=== PATIENT | male | born 1975 | race Caucasian/White ===

== ENCOUNTER → 2020-09-11 15:23 | Outpatient (BNVA) | payer OTHER, SELFPAY | PROVIDERS: PCP Physician Assistant; Visit Provider Surgery | DX: D17.1 Benign lipomatous neoplasm of skin and subcutaneous tissue of trunk (principal) | CPT/HCPCS: 99202 ==

== ENCOUNTER 2020-09-20 14:10 | Outpatient (REF) | payer OTHER, SELFPAY ==
[2020-09-20 14:18] VITALS: BP 160/79; PULSE 77; RESP 16; TEMP 36.7; O2SAT 99
[2020-09-20 14:19] VITALS: BMI 68.5
[2020-09-20 14:45] VITALS: BP 134/79; PULSE 77; RESP 16; O2SAT 98
--- NOTE | 2020-09-20 16:34 | OP_ITS ---
SURGEON: Imer Esquivel MD INDICATIONS: The patient is a 45-year-old male, who was seen in the office because of a mass on the back that was suggestive of lipoma. He wanted this excised and had understood the technique of excision under local anesthesia. He was aware of the risks, benefits, and alternatives. PREOPERATIVE DIAGNOSIS: Lipoma from the back. POSTOPERATIVE DIAGNOSIS: Lipoma from the back. PROCEDURE PERFORMED: Excision of lipoma from the back. ESTIMATED BLOOD LOSS: COMPLICATIONS: ANESTHESIA: ASSISTANTS: SPECIMENS: DESCRIPTION OF PROCEDURE: He was brought to the minor procedure room. He was placed in prone position. The area of the lipoma in the midback was prepped and draped. Lidocaine 1% was used for local anesthesia. An incision was made on the skin overlying this lipoma using blade #15, it was carried down to full-thickness skin and thick subcutaneous fat. We continued to do sharp dissection with scissors until we were able to visualize the lipoma. We sharply dissected lipoma off the rest of the subcutaneous layer using scissors until we were able to completely deliver this and sent as specimen. The lipoma was about 2.5 cm in widest diameter. I irrigated the area of excision. I closed the incision with full-thickness nylon 3-0 interrupted sutures. Thick dressings were applied. The patient tolerated the procedure well. There were no complications noted. He will be seen in the office for removal of sutures in about 2 to 3 weeks. MD MESHA Zaman/MODL / [id number]
== END 2020-09-20 14:11 | disposition home or self-care (01) ==
LOC: HO.MS 14:10
PROVIDERS: PCP Physician Assistant; Visit Provider Surgery
PROC: (CPT 21930; principal; 2020-09-20 14:30)
DX: D17.1 Benign lipomatous neoplasm of skin and subcutaneous tissue of trunk (principal); G47.33 Obstructive sleep apnea (adult) (pediatric); Z79.899 Other long term (current) drug therapy
CPT/HCPCS: 21930; 88304

== ENCOUNTER → 2020-10-04 10:41 | Outpatient (BNVA) | payer OTHER, SELFPAY | PROVIDERS: PCP Physician Assistant; Visit Provider Surgery | DX: D17.1 Benign lipomatous neoplasm of skin and subcutaneous tissue of trunk (principal) | CPT/HCPCS: 99212 ==

== ENCOUNTER → 2023-03-24 15:29 | Outpatient (REF) | payer OTHER, SELFPAY | LOC: HO.SL 15:29 | PROVIDERS: PCP Physician Assistant; Visit Provider Nurse Practitioner Family | DX: G47.33 Obstructive sleep apnea (adult) (pediatric) (principal) | CPT/HCPCS: 95806 ==

== ENCOUNTER → 2023-03-24 15:44 | Outpatient (BNV) | payer OTHER, SELFPAY | PROVIDERS: PCP Physician Assistant; Visit Provider Internal Medicine | DX: G47.33 Obstructive sleep apnea (adult) (pediatric) (principal) | CPT/HCPCS: 95806 ==

== ENCOUNTER 2023-04-25 10:25 | Outpatient (AMB) | payer OTHER, SELFPAY ==
[2023-04-25 10:29] VITALS: BP 136/80; PULSE 96; O2SAT 98; BMI 31.7
--- NOTE | 2023-04-25 10:29 | A.OFFVIS_ITS ---
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 He was referred after PCP sent for home sleep study and found to have an AHI of 46.1. He reports prior use of CPAP therapy over ten years ago and has not used any since. He reports loud snoring, witnessed apneas and frequent night awakenings along with day time fatigue/fogginess. He is looking forward to starting therapy. He denies any personal history of respiratory conditions or symptoms. [facility] Medical History No significant past medical history DELMA (obstructive sleep apnea) Surgical History No history of previous surgery Family History Mother Heart palpitations Father Heart palpitations Social History (Updated 04/25/23 @ 10:33 by Arely Mckinley LPN) Housing: House Alcohol intake: former Year quit: 2012 Patient Tobacco Use Status: Former Tobacco user Tobacco use type: Cigarette Cigarette Packs Per Day: 1 e-Cigarette/Vaping Use: Currently Using Second Hand Smoke Exposure: Yes service: No Current occupational status: unemployed Cognitive needs: No Hearing needs: No Vision needs: No Review of Systems Const Denies chills, Denies excessive sweating, Denies fever(s) and Denies night sweats Eyes Denies dry eyes, Denies irritation and Denies itchy eyes ENT Reports Normal hearing present, Denies nasal congestion, Denies nasal discharge, Denies post nasal drip and Denies sore throat Card Denies chest pain, Denies chest pain at rest, Denies chest pain with activity, Denies claudication, Denies leg edema, Denies dyspnea, Denies dyspnea on exertion and Denies orthopnea Resp Denies chest congestion, Denies cough, Denies excessive phlegm production, Denies pain on inspiration, Denies pain with cough, Denies dyspnea, Denies dyspnea on exertion, Denies stridor and Denies wheezing Musc Denies myalgias Neuro Reports Normal hearing present Endo Denies excessive sweating Curtis/Lymph Denies lymphadenopathy Aller/Immun Denies itchy eyes, Denies seasonal rhinorrhea and Denies wheezing Physical Exam Vital Signs: Last Vital Signs Pulse 96 04/25/23 10:29 BP 136/80 04/25/23 10:29 Pulse Ox 98 04/25/23 10:29 Oxygen Delivery Method Room Air 04/25/23 10:29 BMI result Body Mass Index 31.7 Const General: cooperative, healthy appearing, comfortable, no acute distress, well developed and alert Orientation/consciousness: patient oriented x3 Limitations: no limitations HEENT Head: Yes normal to inspection, Yes normocephalic and Yes atraumatic Ears: hearing grossly normal bilaterally and external ears normal Eyes General: appearance normal, both eyes and all related structures Eyelids: Yes eyelids normal Sclerae: sclerae normal EOM: EOMs intact bilaterally Neck Neck: Yes normal visual inspection and Yes no lymphadenopathy Lymphatic: no lymphadenopathy noted Chest Chest palpation & inspection: normal inspection of the chest Resp Effort & Inspection: normal respiratory effort, able to speak in complete sentences, no audible wheezes, no cough, no stridor, not tachypneic, no tripod positioning and no use of accessory muscles Auscultation: clear to auscultation bilaterally Cardio Jugular venous distension: no JVD Rate: regular rate Rhythm: regular rhythm Skin Other: warm, dry General skin exam: no rashes or lesions noted Neuro General: patient oriented x3 Cranial nerves: Yes Normal hearing present Cognition (Neuro): normal cognition Gait exam (Neuro): Normal gait present Extrem General: Yes normal to inspection, Yes capillary refill normal, Yes no clubbing, cyanosis or edema and Yes no pedal edema Psych Appearance: grossly normal and well kempt Speech and movement: Normal speech and movement present and Clear speech present Affect: normal affect Attitude: cooperative Thought process: Normal thought process present Thought content: Normal thought content present Insight: Good insight present (Psych) Judgement: Good judgement present (Psych) Results Reviewed Results Reviewed: Assessment & Plan Assessment & Plan (1) DELMA (obstructive sleep apnea): Code(s): G47.33 - Obstructive sleep apnea (adult) (pediatric) Plan Reviewed polysomnography report with patient which revealed severe obstructive sleep apnea with AHI of 46.1. Will send for CPAP therapy and full face mask with settings of 6-20 cm.He is aware if he has any issues with the machine/mask to call the office. Will follow up after patient has used machine for 4 weeks. All questions were answered and patient is in agreement of plan. Coding Level of Care Code New Pt Level 3 (74152) Diagnoses DELMA (obstructive sleep apnea) G47.33
== END 2023-04-25 10:56 | disposition home or self-care (01) ==
PROVIDERS: PCP Physician Assistant; Referring Provider Nurse Practitioner Family; Visit Provider Nurse Practitioner Family
DX: G47.33 Obstructive sleep apnea (adult) (pediatric) (principal)
CPT/HCPCS: 99203

== ENCOUNTER → 2023-04-25 10:25 | Outpatient (BNVA) | payer OTHER, SELFPAY | PROVIDERS: PCP Physician Assistant; Visit Provider Nurse Practitioner Family | DX: G47.33 Obstructive sleep apnea (adult) (pediatric) (principal) | CPT/HCPCS: 99202 ==

== ENCOUNTER 2023-07-24 07:08 | Outpatient (AMB) | payer OTHER, SELFPAY ==
[2023-07-24 07:15] VITALS: BP 130/82; PULSE 62; O2SAT 95; BMI 31.9
--- NOTE | 2023-07-24 07:15 | A.OFFPC_ITS ---
Vital Signs 07/24/23 07:15 Height 5 ft 11 in Weight 229 lb BMI 31.9 BP 130/82 Blood Pressure Location Lt brachial Position Sitting Pulse 62 Pulse Source Pulse Oximeter Pulse Oximetry (%) 95 Oxygen Delivery Method Room Air Intake Visit Reasons: Palpitations Allergies No Known Allergies Allergy (Verified 07/24/23 07:16) Tobacco use date assessed: 02/14/23 Dental Screening Dental Screen Date: 07/24/23 Did you have a dental visit in the last 12 months?: Yes Did you have a dental problem in the last 6 months where you did not have access to dental care?: No Was dental information given to patient?: Patient has dentist HPI HPI Comments History of Present Illness Details 48 year old male past medical history si gnificant for obstructive sleep apnea, smoker and opiate dependence. Patient currently following with [facility]. Review of the notes patient has been seen by pulmonology and CPAP was ordered. Patient reports using CPAP for 3 hours a night with good effect. Patient educated to use CPAP machine for greater than 4 hours per night. Patient agreeable. Patient reports few episodes palpitation or he states he gets quick heard couple beats in a row that makes him nervous. Patient reports only last a second or two. Patient denies any associated chest pain, diaphoresis syncope. Patient states he has made an effort take decrease his caffeine consumption stay adequately hydrated. Patient states palpitations has not occurred in 1 week. EKG in office: Sinus rhythm, heart rate 58 with slight intraventricular conduction delay, EKG without significant abnormalities. Patient reminded to get previously ordered blood work obtained. [facility] Medical History No significant past medical history DELMA (obstructive sleep apnea) Surgical History No history of previous surgery Family History Mother Heart palpitations Father Heart palpitations Social History (Updated 04/25/23 @ 10:33 by Arely Mckinley LPN) Housing: House Alcohol intake: former Year quit: 2012 Patient Tobacco Use Status: Former Tobacco user Tobacco use type: Cigarette Cigarette Packs Per Day: 1 e-Cigarette/Vaping Use: Currently Using Second Hand Smoke Exposure: Yes service: No Current occupational status: unemployed Cognitive needs: No Hearing needs: No Vision needs: No Questionnaire PHQ-9 Over the last 2 weeks, how often have you been bothered by any of the following problems? 1. Little interest or pleasure in doing things: not at all 2. Feeling down, depressed, or hopeless: not at all 3. Trouble falling or staying asleep, or sleeping too much: not at all 4. Feeling tired or having little energy: not at all 5. Poor appetite or overeating: not at all 6. Feeling bad about yourself - or that you are a failure or have let yourself or your family down: not at all 7. Trouble concentrating on things, such as reading the newspaper or watching television: not at all 8. Moving or speaking so slowly that other people could have noticed. Or the opposite - being so fidgety or restless that you have been moving around a lot more than usual: not at all 9. Thoughts that you would be better off or of hurting yourself in some way: not at all Total score: 0 Depression Screening Interpretation: Negative Depression Screening Done: Yes 40305 - PHQ-9 Billing: Yes Source: Developed by Drs. Tavon Rinaldi, Klaudia Casey, Dg Beatty and colleagues, with an educational coral from [employer]. Thrive Questionnaire Date Thrive assessed: 02/14/23 AUDIT C Alcohol Use Questionnaire (AUDIT-C) 1. How often do you have a drink containing alcohol?: Never Total Score: 0 DIOGO-7 AMB Questionnaire DIOGO-7 Date DIOGO - 7 assessed: 02/14/23 Source: Developed by Drs. Tavon Rinaldi, Dg Bridges and colleagues, with an educational coral from [employer]. Review of Systems Const Denies chills, Denies fatigue, Denies fever(s) and Denies poor appetite Eyes Denies no additional complaints ENT Reports Normal hearing present Card Denies chest pain, Denies syncope, Reports rapid heart rate and Denies dyspnea Resp Denies cough and Denies dyspnea GI Denies change in stool character, Denies constipation, Denies diarrhea, Denies nausea and Denies vomiting Denies dysuria, Denies urinary frequency and Denies urinary urgency Neuro Reports Normal hearing present, Denies confusion and Denies syncope Psych Denies confusion Endo Denies fatigue Physical exam (Primary Care) Vital Signs: Last Vital Signs Pulse 62 07/24/23 07:15 BP 130/82 07/24/23 07:15 Pulse Ox 95 07/24/23 07:15 Oxygen Delivery Method Room Air 07/24/23 07:15 BMI result Body Mass Index 31.9 Tobacco/Smoking Status: Tobacco use Status Tobacco use date assessed 02/14/23 07/24/23 07:17 Patient Tobacco Use Status Former Tobacco user 07/24/23 07:17 Tobacco use type Cigarette 07/24/23 07:17 e-Cigarette/Vaping Use Currently Using 07/24/23 07:17 PHQ-9: PHQ-9 Score PHQ-9: Total score 0 07/24/23 07:38 Depression Screening Interpretation: Negative Thrive Assessment: Date of Thrive Assessment Date Thrive assessed 02/14/23 07/24/23 07:17 Const General: No confusion Orientation/consciousness: No confusion HENMT Head: Yes normocephalic and Yes atraumatic Eyes Conjunctivae: conjunctivae normal Chest Chest palpation & inspection: normal inspection of the chest Resp Effort & Inspection: normal respiratory effort Auscultation: clear to auscultation bilaterally, no crackles, no rhonchi and no wheezes Cardio Rate: regular rate Rhythm: regular rhythm Heart sounds: S1 normal heart sound present and S2 normal heart sound present GI Inspection: Yes normal to inspection Neuro General: No confusion Cranial nerves: Yes Normal hearing present Extrem General: No edema Assessment and Plan Assessment & Plan (1) Palpitations: Code(s): R00.2 - Palpitations Plan: EKG in office sinus rhythm. 3 day Holter monitor ordered to further evaluate. Patient advised to get previously ordered fasting blood work completed. Patient advised to continue take decrease caffeine consumption and ensured to drink plenty water. Signs symptoms reviewed with patient when to seek emergency medical attention. (2) DELMA (obstructive sleep apnea): Code(s): G47.33 - Obstructive sleep apnea (adult) (pediatric) Plan: Patient advised to use CPAP for greater than 4 hours a night with good. Patient reports currently using CPAP for 3 hours per night and benefits from this. Continue to follow with pulmonology Plan Keep scheduled with PCP Orders: Orders ECG 3 day holter monitor Today R00.2 - Palpitations Coding Level of Care Code Est Pt Level 3 (02361) Diagnoses Palpitations R00.2 DELMA (obstructive sleep apnea) G47.33
== END 2023-07-24 09:55 | disposition home or self-care (01) ==
PROVIDERS: PCP Physician Assistant; Visit Provider Nurse Practitioner Family
DX: R00.2 Palpitations (principal); G47.33 Obstructive sleep apnea (adult) (pediatric); F17.210 Nicotine dependence, cigarettes, uncomplicated
CPT/HCPCS: 99213

== ENCOUNTER → 2023-07-29 08:31 | Outpatient (REF) | payer OTHER, SELFPAY ==
--- NOTE | 2023-07-29 08:34 | HM_ITS ---
Conclusion poor: 1. Patient was monitored for total period of 2 days and 23 hours 2. Baseline was normal sinus with average heart of 85 beats per minute 3. No significant pauses noted 4. Rare PACs noted with 119 beat run of supraventricular run at 157 beats per minute 5. No patient reported events MTDD
== END ==
LOC: HO.CARD 08:31
PROVIDERS: PCP Nurse Practitioner Family; Visit Provider Nurse Practitioner Family
DX: R00.2 Palpitations (principal)
CPT/HCPCS: 93242

== ENCOUNTER → 2023-07-29 08:34 | Outpatient (BNV) | payer OTHER, SELFPAY | PROVIDERS: PCP Nurse Practitioner Family; Visit Provider Internal Medicine Cardiovascular Disease | DX: I49.1 Atrial premature depolarization (principal) | CPT/HCPCS: 93244 ==

== ENCOUNTER 2023-09-16 14:33 | Outpatient (AMB) | payer OTHER, SELFPAY ==
[2023-09-16 14:42] VITALS: BP 142/79; PULSE 80; BMI 32.9
--- NOTE | 2023-09-16 14:42 | A.OFFVIS_ITS ---
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 He is a pleasant 48-year-old male with prior history of alcohol and opiate dependence, currently has remained clean for many many years currently on Suboxone therapy. Has history of obstructive sleep apnea. Over the last 3 months he has been noticing symptoms of palpitations. He describes this symptoms of fluttering in his chest which are quick can happen mostly at rest. He has not noticed any increase recent stress in his life for stressors. Denies any [id number] medication use. Patient had a Holter monitor done which showed 1 episode of 19 beats run of SVT at 169 beats per minute. Interestingly says about 20 years ago when he was undergoing rehab he had 1 episode of very fast heart rate for which she was referred to what he thinks is [facility] and was told that he had rapid heart rate. He was given intravenous what appears to be adenosine but this was not effective and subsequently overnight he converted back to sinus rhythm. Although no further treatment or follow-up was offered to him at this point time. He said he almost forgotten this, however this as recent phase with symptoms of palpitations. He is concerned about these palpitation as his brother has history of atrial fibrillation and his father had undergone probably an ablation although he is not entirely clear. He remains active. Denies any over use of stimulants. Denies any exertional chest pain or shortness of breath. COUNTS INCLUDE 234 BEDS AT THE [facility] Medical History DELMA (obstructive sleep apnea) No significant past medical history Surgical History No history of previous surgery Family History Mother Heart palpitations Father Heart palpitations Social History Housing: House Alcohol intake: former Year quit: 2012 Patient Tobacco Use Status: Former Tobacco user Tobacco use type: Cigarette Cigarette Packs Per Day: 1 e-Cigarette/Vaping Use: Currently Using Second Hand Smoke Exposure: Yes service: No Current occupational status: unemployed Cognitive needs: No Hearing needs: No Vision needs: No Review of Systems Const Denies chills, Denies daytime sleepiness, Denies fatigue, Denies fever(s), Denies frequent falls, Denies poor appetite, Denies snoring, Denies stops breathing during sleep, Denies weakness, Denies weight gain and Denies weight loss Eyes Denies loss of vision ENT Denies dizziness and Denies hearing loss Card Denies chest pain, Denies claudication, Denies leg edema, Denies lightheadedness, Denies palpitations, Denies dyspnea, Denies dyspnea on exertion and Denies orthopnea Resp Denies cough, Denies excessive phlegm production, Denies dyspnea, Denies dyspnea on exertion, Denies snoring and Denies wheezing GI Denies abdominal pain, Denies hematochezia, Denies change in bowel habits, Denies nausea and Denies vomiting Denies dysuria and Denies urinary frequency Musc Denies arthralgias, Denies muscle weakness, Denies numbness and Denies other (frequent falls) Skin/Breast Denies nail changes and Denies rash Neuro Denies Abnormal speech present, Denies dizziness, Denies frequent falls, Denies loss of vision, Denies memory loss, Denies numbness and Denies weakness Psych Denies depression and Denies memory loss Endo Denies fatigue and Denies palpitations Curtis/Lymph Reports easy bruising and Reports other (anemia) Aller/Immun Denies wheezing Physical Exam Vital Signs: Last Vital Signs Pulse 95 09/16/23 14:53 BP 135/85 09/16/23 14:53 BMI result Body Mass Index 32.9 Const General: cooperative, comfortable, no acute distress, alert, awake and anxious Nutritional Appearance: overweight Orientation/consciousness: patient oriented x3 Limitations: no limitations HEENT Head: Yes normocephalic and Yes atraumatic Neck Neck: Yes trachea midline, Yes supple and Yes no JVD Resp Effort & Inspection: normal respiratory effort Auscultation: clear to auscultation bilaterally Cardio Jugular venous distension: no JVD Palpation: normal PMI Rate: regular rate Rhythm: regular rhythm Heart sounds: S1 normal heart sound present, S2 normal heart sound present, no click, no gallops, no murmurs and no rubs GI Auscultation: normal bowel sounds Skin General skin exam: no rashes or lesions noted Neuro General: patient oriented x3 and no focal motor deficits Speech: No Abnormal speech present Extrem General: Yes no clubbing, cyanosis or edema Psych Appearance: grossly normal Assessment & Plan Assessment & Plan (1) SVT (supraventricular tachycardia): Code(s): I47.10 - Supraventricular tachycardia, unspecified Plan: Patient recent symptoms of palpitation which are more like skipped heartbeats most likely related to isolated ectopy such as PACs or PVCs but he has highly symptomatic with it. However is noted to have 1 episode of SVT on the Holter monitor and recalls 1 clinically significant episode of SVT about 20 years ago which had to be treated in the emergency room. 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 We discussed about dual AV [place] physiology and management of SVT. Given his highly symptomatic nature of palpitation was started mom metoprolol to reduce excitability as well as slow the conduction through the fast pathway to reduce recurrence of SVT. We discussed about vagal maneuvers in details. We also discussed about if necessary ablation procedure if required. Avoidance of stimulants such as caffeine and alcohol an [id number] pseudo ephedrine was discussed. Stress mitigation strategies were discussed. Will obtain echocardiogram to evaluate for structural heart issues. Repeat Holter monitor on medications in 4 weeks time. Will follow up in the clinic in 6-8 weeks time. Orders: Orders CA echo transthoracic complete Today I47.10 - Supraventricular tachycardia, unspecified ECG holter monitor 48 hour 4 Weeks I47.10 - Supraventricular tachycardia, unspecified Medications: New metoprolol succinate ER (Toprol XL) 50 mg PO DAILY 30 tabs 3RF Coding Level of Care Code New Pt Level 4 (18272) Diagnoses SVT (supraventricular tachycardia) I47.10
[2023-09-16 14:53] VITALS: BP 135/85; BP 136/89; PULSE 89; PULSE 95
== END 2023-09-16 15:18 | disposition home or self-care (01) ==
PROVIDERS: PCP Nurse Practitioner Family; Visit Provider Internal Medicine Cardiovascular Disease
DX: I47.10 Supraventricular tachycardia, unspecified (principal)
CPT/HCPCS: 99204

== ENCOUNTER → 2023-09-16 14:33 | Outpatient (BNVA) | payer OTHER, SELFPAY | PROVIDERS: PCP Nurse Practitioner Family; Visit Provider Internal Medicine Cardiovascular Disease | DX: I47.10 Supraventricular tachycardia, unspecified (principal) | CPT/HCPCS: 99202 ==

== ENCOUNTER → 2023-10-09 10:06 | Outpatient (REF) | payer OTHER, SELFPAY ==
--- NOTE | 2023-10-09 10:09 | HM_ITS ---
* Total monitoring time 2 days. * Underlying rhythm is sinus with an average rate of 76/Min. Range 48 to 109/Min. * Rare supraventricular and ventricular ectopy. * No sustained arrhythmias. * No significant pauses or AV blocks. * No patient markers or diary events. MTDD
--- NOTE | 2023-10-09 10:09 | CA_ITS ---
Transthoracic Echocardiogram Patient (Last, First, Middle): Dl Watson J Gender: Male Date of : 1975 Age: 48 Procedure Date: 10/09/2023 Procedure Type: Transthoracic Echocardiogram Location: OP Height: 182.88 cm Weight: 104.33 kg BSA: 2.26 m2 Heart Rate: 63 bpm BP: 138 / 84 mmHg Senior Product Development Scientist: MARY Referring MD: Chris Soto MD Roentgenologist: Chris Soto MD Symptoms: I47.10 - Supraventricular tachycardia, unspecified Study Quality: Adequate W contrast ECG Rhythm: Sinus Conclusions: - Essentially normal study Findings Procedure Information Contrast agent, definity, is being given per protocol without apparent complications. Left Ventricle Normal left ventricular size, thickness, and systolic function. The visually estimated ejection fraction is between 60-65%. Spectral Doppler is indicative of a normal filling pattern. Right Ventricle Normal right ventricular cavity size and systolic function. Atria The left atrium is likely dilated. Interatrial shunt cannot be excluded. The right atrium is normal in size. Aortic Valve The aortic valve structure and function is likely normal. There is no aortic valve stenosis. There is no aortic valve regurgitation. Mitral Valve Likely normal mitral valve structure and function. There is trace mitral valve regurgitation. There is no mitral valve stenosis. Pulmonic Valve The pulmonic valve is likely normal. There is trace pulmonic valve regurgitation. Tricuspid Valve Normal tricuspid valve structure. Tricuspid regurgitation envelope is inadequate for calculation of right ventricular systolic pressure. Normal right atrial pressure. Great Vessels All visible segments of the aorta are normal in size. The pulmonary artery was not well visualized. Venous The inferior vena cava is normal in size and collapses greater than 50% with inspiration. Pericardium/Pleural There is no evidence of pericardial effusion. Prior Study Comparison No prior study available for comparison. Measurements 2D Linear Measurements IVSd: 1.07 0.6-0.9/0.6-1.0 cm LVIDd: 5.46 3.9-5.3/4.2-5.9 cm LVIDd Index: 2.42 2.4-3.2/2.2-3.1 cm/m2 LVIDs: 3.51 2.0-3.6 cm LVPWd: 1.06 0.7-1.1 cm LA Diam: 3.90 2.7-3.8/3.0-4.0 cm LAIDs Index: 1.73 1.5-2.3 cm/m2 LV Mass: 307.36 67-162/88-224 g LV Mass Index: 136.00 43-95/49-115 g/m2 LVOT Diam: 2.30 3.0+(-)1.3 cm 2D Systolic Function EF 4C: 58.60 >55% EF 2C: 61.90 >55% EF BiP: 60.70 >55% Mitral Valve MV Pk E: 0.92 MV PK A: 0.74 MV Decel Time: 224.00 E/A: 1.20 E'Lateral: 10.00 E'Medial: 7.07 E/E' Med: 13.00 E/E' Lat: 9.20 PHT: 66.00 MVA PHT: 3.33 Decel Robeson: 4.09 Aortic Valve AoV Pk Percy: 1.47 AoV Mn Percy: 0.89 AoV VTI: 0.31 AoV Pk Grad: 9.00 Aov Mn Grad: 4.00 BA Cont.VTI: 3.05 LVOT LVOT Pk Percy: 1.06 LVOT Mn Percy: 0.70 LVOT VTI: 0.23 LVOT Pk Grad: 4.00 LVOT Mn Grad: 2.00 LVOT Diam: 2.30 LVOT Area: 4.15 Diastolic Function MV Pk E: 0.92 MV Pk A: 0.74 E/A: 1.20 E'Medial: 7.07 E/E' Med: 13.00 E' Laterial: 10.00 E/E' Lat: 9.20 Right Ventricle TAPSE (mm): 26.20 TVS' Percy: 10.70 Tricuspid Valve RA Press: 3.00 Great Vessels Aorta Sinus of Valsalva: 3.69 2.0-3.[address] [place]: 2.50 1.7-3.4 cm Ao Asc: 3.00 2.1-3.4 cm Updated in Other Vendor System with Status of Final Chris Soto MD electronically signed on 10/09/2023 1:31:33 PM with status of Final
== END ==
LOC: HO.CARD 10:06
PROVIDERS: PCP Nurse Practitioner Family; Visit Provider Internal Medicine Cardiovascular Disease
DX: I47.10 Supraventricular tachycardia, unspecified (principal)
CPT/HCPCS: 93225; 93306; Q9957

== ENCOUNTER → 2023-10-09 10:09 | Outpatient (BNV) | payer OTHER, SELFPAY | PROVIDERS: PCP Nurse Practitioner Family; Visit Provider Internal Medicine Cardiovascular Disease | DX: I47.10 Supraventricular tachycardia, unspecified (principal) | CPT/HCPCS: 93227; 93306 ==

== ENCOUNTER 2023-11-06 13:23 | Outpatient (AMB) | payer OTHER, SELFPAY ==
--- NOTE | 2023-11-06 13:33 | MHC.OFFVIS ---
Intake Vital Signs 11/06/23 13:34 Height 5 ft 11 in Weight 239 lb 13.807 oz BMI 33.5 BP 120/84 Blood Pressure Location Lt brachial Position Sitting Pulse 63 Pulse Source Pulse Oximeter Intake Visit Reasons: 8 wkj f/up echo/ holter NS 911 Dispatcher Required: No Allergies No Known Allergies Allergy (Verified 11/06/23 13:38) Medication List - Last Reconciled 11/06/23 by Any Valentino, NURSING ADMINISTRATOR-C buprenorphine-naloxone 8-2 mg film sublingual metoprolol succinate ER (Toprol XL) 50 mg PO DAILY HPI 8 wkj f/up echo/ holter NS HPI Details Dl is a 48-year-old male with past medical history of prior substance abuse, sleep apnea, SVT who presents for follow-up after recent Holter monitor and echocardiogram. Today he reports that since his last visit had an episode of sudden onset rapid heart palpitations that lasted 20 minutes before resolving on its own. He did try vagal maneuvers, holding his breath and it did not help. He felt well with the exception of the heart palpitation. No presyncope, syncope, falls. No chest discomfort at rest or with activity. No shortness of breath, PND, orthopnea or edema. He says he has had other episodes of rapid heartbeat but they typically are brief. Expresses much concern over this symptom. Taking metoprolol daily. [facility] Medical History DELMA (obstructive sleep apnea) No significant past medical history Surgical History No history of previous surgery Family History Mother Heart palpitations Father Heart palpitations Social History Housing: House Alcohol intake: former Year quit: 2012 Patient Tobacco Use Status: Former Tobacco user Tobacco use type: Cigarette Cigarette Packs Per Day: 1 e-Cigarette/Vaping Use: Currently Using Second Hand Smoke Exposure: Yes service: No Current occupational status: unemployed Cognitive needs: No Hearing needs: No Vision needs: No Review of Systems Const All systems reviewed & are unremarkable except as noted in HPI and below ENT Reports dizziness Card Denies chest pain, Denies chest pain at rest, Denies chest pain with activity, Reports rapid heart rate, Denies pedal edema, Denies edema, Denies leg edema, Denies lightheadedness, Reports palpitations, Denies dyspnea, Reports dyspnea on exertion and Denies orthopnea Resp Denies cough, Denies dyspnea and Reports dyspnea on exertion GI Denies hematochezia and Denies change in stool character Musc Denies abnormal gait, Denies limited range of motion, Denies muscle cramps, Denies muscle weakness, Denies numbness, Denies radiating pain into limb, Denies stiffness and Denies tingling Neuro Denies abnormal gait, Reports dizziness, Denies numbness and Denies tingling Endo Reports palpitations Physical Exam Vital Signs: Last Vital Signs Pulse 63 11/06/23 13:34 BP 120/84 11/06/23 13:34 BMI result Body Mass Index 33.5 Const General: cooperative, healthy appearing, comfortable and no acute distress Orientation/consciousness: patient oriented x3 Neck Neck: Yes normal visual inspection and Yes no JVD Resp Effort & Inspection: normal respiratory effort Auscultation: clear to auscultation bilaterally, no crackles, no rales, no rhonchi and no wheezes Cardio Jugular venous distension: no JVD Rate: regular rate Rhythm: regular rhythm Heart sounds: S1 normal heart sound present, S2 normal heart sound present, no murmurs and no rubs Neuro General: patient oriented x3 Extrem General: Yes normal to inspection, No no pedal edema and No calf tenderness Psych Appearance: grossly normal Mental Status: mental status grossly normal Speech and movement: Normal speech and movement present Assessment & Plan Assessment & Plan (1) Palpitations: Code(s): R00.2 - Palpitations Plan: Recent reports of heart palpitations, skipped heartbeats and rapid heart rates. Known history of SVT with a clinically significant episode approximately 20 years ago, which required emergency room treatment. Holter monitor done 08/08/2023 for 3 days shows sinus rhythm with average heart rate 85, rare PACs, 119 beat run of SVT at 157 per minute. He has been on metoprolol XL 50 mg daily. An echocardiogram done 10/09/2023 showed normal study. A repeat Holter monitor done 10/09/2023 shows sinus rhythm with average heart rate 76, rare SVE and VE. Today he reports that since his last visit he had 1 episode of rapid heart palpitations lasting 20 minutes. He attempted vagal maneuvers and they did not work. He said the symptom just suddenly went away on its own when he got up to wash his hands. No presyncope, syncope, falls. Pulse is regular on examination today. Case reviewed with Dr. Soto. Will obtain a cardiac event monitor to help further evaluate arrhythmia. If his symptoms do correlate with SVT then EP referral will be considered. Continue current metoprolol. Different vagal maneuvers reviewed. Instructed on avoidance of stimulants. Cardiology follow-up in 2 months, sooner if needed. Emergency care if ever needed for symptoms. (2) SVT (supraventricular tachycardia): Code(s): I47.10 - Supraventricular tachycardia, unspecified Plan: As above Plan Time spent on chart review, documentation, interview and assessment Orders: Orders ECG 30 day event monitor Today I47.10 - Supraventricular tachycardia, unspecified, R00.2 - Palpitations Coding Level of Care Code Est Pt Level 3 (47143) Diagnoses Palpitations R00.2 SVT (supraventricular tachycardia) I47.10 Time Spent (min) 24
[2023-11-06 13:34] VITALS: BP 120/84; PULSE 63; BMI 33.5
== END 2023-11-06 14:11 | disposition home or self-care (01) ==
PROVIDERS: PCP Nurse Practitioner Family; Visit Provider Nurse Practitioner Family
DX: R00.2 Palpitations (principal); I47.10 Supraventricular tachycardia, unspecified
CPT/HCPCS: 99213

== ENCOUNTER → 2023-11-06 13:23 | Outpatient (BNVA) | payer OTHER, SELFPAY | PROVIDERS: PCP Nurse Practitioner Family; Visit Provider Nurse Practitioner Family | DX: I47.10 Supraventricular tachycardia, unspecified (principal); R00.2 Palpitations | CPT/HCPCS: 99212 ==

== ENCOUNTER 2023-11-12 12:52 | Outpatient (AMB) | payer OTHER, SELFPAY ==
--- NOTE | 2023-11-12 12:54 | A.OFFVIS_ITS ---
Intake Vital Signs 11/12/23 12:59 Height 5 ft 11 in Weight 242 lb 8.136 oz BMI 33.8 BP 122/80 Blood Pressure Location Lt brachial Position Sitting Pulse 57 Intake Visit Reasons: per NS f/up Intake Note: follow up pt feels good Academic Director Required: No Accompanied by: Spouse Allergies No Known Allergies Allergy (Verified 11/06/23 13:38) Medication List - Last Reconciled 11/12/23 by Chris Soto MD buprenorphine-naloxone 8-2 mg film sublingual metoprolol succinate ER (Toprol XL) 100 mg PO DAILY HPI HPI Comments History of Present Illness Details Dl comes for follow-up. On Friday he had a very strong episode of palpitation that would not subside ended up going to [facility]. There was noted on EKG to have atrial fibrillation/flutter with rapid ventricular response. He said he was not very anxious but when he got there his blood pressure is very high. Was treated in the ER and given additional metoprolol and subsequently converted to sinus rhythm and blood pressure gradually came down. Since then he has been doing well. He has been recently diagnosed with severe sleep apnea, does not see a sleep specialist. He said yesterday had a quick flutter in his chest but did not go into a full-blown prolonged palpitations. Prior to that the last episode of prolonged palpitation was 10 minutes on the [facility] bow Friday. He has had palpitation for some time which has been in the past diagnose SVT but there is no clear clinical evidence of the same. His metoprolol was then increased to 100 mg daily. [facility] Medical History Paroxysmal atrial fibrillation DELMA (obstructive sleep apnea) No significant past medical history Surgical History No history of previous surgery Family History Mother Heart palpitations Father Heart palpitations Social History Housing: [place] Alcohol intake: former Year quit: 2012 Patient Tobacco Use Status: Former Tobacco user Tobacco use type: Cigarette Cigarette Packs Per Day: 1 e-Cigarette/Vaping Use: Currently Using Second Hand Smoke Exposure: Yes service: No Current occupational status: unemployed Cognitive needs: No Hearing needs: No Vision needs: No Review of Systems Const Denies weakness ENT Denies dizziness Card Denies chest pain, Denies chest pain with activity, Denies syncope, Denies rapid heart rate, Denies pedal edema, Denies edema, Denies leg edema, Denies lightheadedness, Denies palpitations, Denies dyspnea, Denies dyspnea on exertion and Denies orthopnea Resp Denies cough, Denies dyspnea and Denies dyspnea on exertion GI Denies hematochezia and Denies change in stool character Musc Denies abnormal gait, Denies muscle cramps, Denies muscle weakness, Denies numbness, Denies radiating pain into limb and Denies tingling Neuro Denies abnormal gait, Denies dizziness, Denies syncope, Denies numbness, Denies tingling and Denies weakness Endo Denies palpitations Physical Exam Vital Signs: Last Vital Signs Pulse 57 11/12/23 12:59 BP 122/80 11/12/23 12:59 BMI result Body Mass Index 33.8 Const General: cooperative, healthy appearing, comfortable and no acute distress Orientation/consciousness: patient oriented x3 Neck Neck: Yes normal visual inspection and Yes no JVD Resp Effort & Inspection: normal respiratory effort Auscultation: clear to auscultation bilaterally, no crackles, no rales, no rhonchi and no wheezes Cardio Jugular venous distension: no JVD Rate: regular rate Rhythm: regular rhythm Heart sounds: S1 normal heart sound present, S2 normal heart sound present, no murmurs and no rubs Neuro General: patient oriented x3 Extrem General: Yes normal to inspection, No no pedal edema and No calf tenderness Psych Appearance: grossly normal Mental Status: mental status grossly normal Speech and movement: Normal speech and movement present Office Procedures EKG Details: EKG shows sinus bradycardia with QS pattern in lead V1 V2 most likely lead placement. [id number], Complete Assessment & Plan Assessment & Plan (1) Paroxysmal atrial fibrillation: Code(s): I48.0 - Paroxysmal atrial fibrillation Plan: Paroxysmal atrial fibrillation, highly symptomatic. He has not had any recurrent major events on higher dose of metoprolol. I strongly advised him to avoid stimulants including alcohol and caffeine. Also advised to avoid other agents especially any agents like cocaine. He understands and agrees. Management of atrial fibrillation was discussed. He does have significant sleep apnea which puts him at risk for recurrent atrial fibrillation. He does have a nasal CPAP although he thinks this is ineffective. I have requested urgent consult with sleep medicine to help with management of sleep apnea to prevent recurrent events. Blood pressure today is well optimized. Advised to monitor blood pressure at home and provide me with a log in about a month's time. If blood pressure well controlled, his CHADSVASc score is 0, and will therefore avoid oral anticoagulation therapy. Further treatment with rhythm management was discussed with him including need for antiarrhythmic drug and/or ablation if so required. Would suggest a treadmill stress test to assess for myocardial ischemia to guide antiarrhythmic drug therapy. Will follow up in the clinic in 3 months time, sooner p.r.n.. Thank you for allowing me to partake in his care Orders: Orders CA stress test Today I48.0 - Paroxysmal atrial fibrillation Referrals Sleep Medicine Referral G47.33 - Obstructive sleep apnea (adult) (pediatric) Medications: Changed From metoprolol succinate ER (Toprol XL) 50 mg PO DAILY 30 tabs 3RF To metoprolol succinate ER (Toprol XL) 100 mg PO DAILY Coding Level of Care Code Est Pt Level 4 (26095) Diagnoses Paroxysmal atrial fibrillation I48.0 CPT Codes EKG - CPT: 91694-Jufrraqikvnjelacn, Complete ([id number])
[2023-11-12 12:59] VITALS: BP 122/80; PULSE 57; BMI 33.8
== END 2023-11-12 13:28 | disposition home or self-care (01) ==
PROVIDERS: PCP Nurse Practitioner Family; Visit Provider Internal Medicine Cardiovascular Disease
DX: I48.0 Paroxysmal atrial fibrillation (principal)
CPT/HCPCS: 93010; 99214

== ENCOUNTER → 2023-11-12 12:52 | Outpatient (BNVA) | payer OTHER, SELFPAY | PROVIDERS: PCP Nurse Practitioner Family; Visit Provider Internal Medicine Cardiovascular Disease | DX: I48.0 Paroxysmal atrial fibrillation (principal) | CPT/HCPCS: 93005; 99212 ==

== ENCOUNTER 2023-11-14 12:58 | Outpatient (AMB) | payer OTHER, SELFPAY ==
--- NOTE | 2023-11-14 13:01 | MHC.OFFVIS ---
Intake Vital Signs 11/14/23 13:09 Height 5 ft 11 in Weight 236 lb 2 oz BMI 32.9 BP 134/80 Blood Pressure Location Lt brachial Position Sitting Pulse 59 Pulse Source Pulse Oximeter Pulse Oximetry (%) 98 Oxygen Delivery Method Room Air Intake Visit Reasons: INP-DELMA-LVM Intake Note: Patient presents for DELMA. Has a machine and its not working at all. Getting up all night and mouth is very dry. Allergies No Known Allergies Allergy (Verified 12/01/23 13:32) HPI HPI Comments History of Present Illness Details 48 y/o male patient presents for new in-person visit to manage sleep apnea. Pt was diagnosed with DELMA last year, and started CPAP. However, he stopped using CPAP and restarted 6 months ago. The home sleep study result was severe degree of sleep apnea. The total AHI was 46/hr and oxygen ricardo was 80%. The total duration of O2 sat below 88% was 15 min. He uses nasal mask, but he open his mouth, and seems his CPAP doesn't help. He wakes up every hour, and having non refreshing sleep. He has Afib, visit ER Friday, his BP was 211/200. He is on metoprolol ER 50 mg daily. [facility] Medical History Paroxysmal atrial fibrillation DELMA (obstructive sleep apnea) No significant past medical history Surgical History No history of previous surgery Family History Mother Heart palpitations Father Heart palpitations Social History Housing: House Alcohol intake: former Year quit: 2012 Patient Tobacco Use Status: Former Tobacco user Tobacco use type: Cigarette Cigarette Packs Per Day: 1 e-Cigarette/Vaping Use: Currently Using Second Hand Smoke Exposure: Yes service: No Current occupational status: unemployed Cognitive needs: No Hearing needs: No Vision needs: No Review of Systems Const All systems reviewed & are unremarkable except as noted in HPI and below Physical Exam Vital Signs: Last Vital Signs Pulse 59 11/14/23 13:09 BP 134/80 11/14/23 13:09 Pulse Ox 98 11/14/23 13:09 Oxygen Delivery Method Room Air 11/14/23 13:09 BMI result Body Mass Index 32.9 Const General: cooperative Nutritional Appearance: obese Orientation/consciousness: patient oriented x3 Neck Neck: Yes full ROM and Yes supple Resp Effort & Inspection: normal respiratory effort and able to speak in complete sentences Neuro General: patient oriented x3, gait normal and moves all extremities Cognition (Neuro): normal cognition Gait exam (Neuro): Normal gait present Motor exam (neuro): 5/5 motor strength present throughout Psych Appearance: grossly normal Mental Status: mental status grossly normal Speech and movement: Normal speech and movement present Affect: normal affect Attitude: cooperative Assessment & Plan Assessment & Plan (1) DELMA (obstructive sleep apnea): Code(s): G47.33 - Obstructive sleep apnea (adult) (pediatric) Plan New mask fitting prescription and home care company information given to patient. Continue to use APAP [id number]. Stressed compliance, use CPAP nightly and more than 4 hrs. Wt reduction advised. Coding Level of Care Code New Pt Level 3 (87407) Diagnoses DELMA (obstructive sleep apnea) G47.33
[2023-11-14 13:09] VITALS: BP 134/80; PULSE 59; O2SAT 98; BMI 32.9
== END 2023-11-14 13:33 | disposition home or self-care (01) ==
PROVIDERS: PCP Nurse Practitioner Family; Visit Provider Nurse Practitioner Family
DX: G47.33 Obstructive sleep apnea (adult) (pediatric) (principal)
CPT/HCPCS: 99203

== ENCOUNTER → 2023-11-14 12:58 | Outpatient (BNVA) | payer OTHER, SELFPAY | PROVIDERS: PCP Nurse Practitioner Family; Visit Provider Nurse Practitioner Family | DX: G47.33 Obstructive sleep apnea (adult) (pediatric) (principal) | CPT/HCPCS: 99202 ==

== ENCOUNTER → 2023-11-24 10:58 | Outpatient (REF) | payer OTHER, SELFPAY ==
--- NOTE | 2023-11-24 11:01 | HM_ITS ---
* Total procedure length 30 days. Wear time 3 days. * Underlying rhythm is sinus with an average rate of 70/Min. Minimum rate 48/Min. Maximum rate 130/Min. * Episodes of atrial fibrillation with rapid ventricular rate noted. Total burden 15%. * Rare ventricular ectopy. * Patient's symptoms of irregular beats/flutter correlates with atrial fibrillation. MTDD
== END ==
LOC: HO.CARD 10:58
PROVIDERS: PCP Nurse Practitioner Family; Visit Provider Nurse Practitioner Family
DX: R00.2 Palpitations (principal); I47.10 Supraventricular tachycardia, unspecified
CPT/HCPCS: 93270

== ENCOUNTER → 2023-11-24 11:01 | Outpatient (BNV) | payer OTHER, SELFPAY | PROVIDERS: PCP Nurse Practitioner Family; Visit Provider Internal Medicine | DX: I48.91 Unspecified atrial fibrillation (principal) | CPT/HCPCS: 93272 ==

== ENCOUNTER 2023-11-27 10:09 | Emergency (ER) | payer OTHER, SELFPAY ==
--- NOTE | 2023-11-27 10:15 | ECG_ITS ---
Test Reason : a-fib Blood Pressure : / mmHG Vent. Rate : 120 BPM Atrial Rate : 000 BPM P-R Int : 000 ms QRS Dur : 098 ms QT Int : 296 ms P-R-T Axes : 000 047 015 degrees QTc Int : 418 ms Atrial fibrillation with rapid ventricular response Septal infarct , age undetermined Abnormal ECG No previous ECGs available Referred By: Generic ED Physician Electronically Signed By:AMY VAUGHN MD
[2023-11-27 10:16] VITALS: BP 156/108; PULSE 112; RESP 16; TEMP 36.6; O2SAT 97; BMI 32.5
[2023-11-27 10:39] LABS: MANUAL DIFF FLAG NO
[2023-11-27 10:43] LABS: Basophils Percent Auto 0.4 % (0-2); Eosinophils Absolute Auto 0.1 X10*3/uL (0.0-0.4); Eosinophils Percent Auto 0.9 % (0-4); Hematocrit 46.4 % (42.0-52.0); Hemoglobin 15.1 g/dl (14.0-18.0); Imm Gran Abs Auto 0.03 X10*3/uL (0.00-0.03); Imm Gran Pct Auto 0.4 % (0.0-0.4); Lymphocytes Absolute Auto 1.4 X10*3/uL (1.2-4.9); Lymphocytes Percent Auto 16.9 % (20-40); Mean Corpuscular HGB Conc 32.5 g/dl (31.0-36.0); Mean Corpuscular Hemoglobin 25.3 pg (27.0-33.0); Mean Corpuscular Volume 77.6 fL (80.0-98.0); Mean Platelet Volume 10.1 fL (9.4-12.4); Monocytes Absolute Auto 0.5 X10*3/uL (0.1-1.2); Monocytes Percent Auto 6.1 % (2-11); Neutrophils Absolute Auto 6.1 x10*3/uL (2.0-8.3); Neutrophils Percent Auto 75.3 % (45-73); Platelet Count 238 X10*3/uL (160-400); Red Blood Count 5.98 X10*6/uL (4.60-5.80); Red Cell Distribution Width 13.2 % (11.0-16.0); White Blood Count 8.1 X10*3/uL (4.8-10.8)
[2023-11-27 10:59] LABS: Anion Gap 10 (12-20); Blood Urea Nitrogen 9 mg/dL (9-16); Calcium 9.5 mg/dL (8.4-10.2); Carbon Dioxide 27 mmol/L (22-29); Chloride 105 mmol/L (96-108); Creatinine Clr Calc Pharmacy 166.8; Estimated Glomerular Filt Rate > 60; Glucose Random 135 mg/dL (60-115); Potassium 4.2 mmol/L (3.3-5.1); Sodium 138 mmol/L (135-145)
[2023-11-27 11:06] LABS: B Type Natriuretic Peptide 62 pg/mL (<100)
[2023-11-27 11:09] LABS: Troponin-I High Sensitivity < 2.7 ng/L (<3.5-35.0)
--- NOTE | 2023-11-27 12:09 | ED.ARRPALP ---
HPI - Arrhythmia/Palpitations General Chief Complaint: Arrhythmia/Palpitations Stated Complaint: Sent by Dr Amarilys BAUER Time Seen by Provider: 11/27/23 11:56 History of Present Illness HPI narrative: Patient is a 48-year-old male with a history atrial fibrillation in the past. Currently is on metoprolol 50 mg twice a day. Last took his medication this morning he has been compliant. Patient feel weak not quite right noticed palpitation starting at approximately 01:00. Patient from home. He was seen at [place] a few weeks ago at that time was thought to have possible atrial fibrillation. His dose of metoprolol at that time was increased from 50 once a day to 50 twice a day. Patient denies any alcohol use. Denies any history of congestive heart failure. Otherwise previously well. No chest pain or diaphoresis. Sees a family therapist has a monitor in place. Related Data Home Medications Medication Instructions Recorded Confirmed buprenorphine 8 mg-naloxone 2 mg film sublingual 08/29/20 11/12/23 sublingual film Previous Rx's Medication Instructions Recorded metoprolol succinate 50 mg 50 mg PO BID #60 tabs 11/24/23 tablet,extended release 24 hr (Toprol XL) flecainide 50 mg tablet 50 mg PO Q12H #30 tabs 11/27/23 rivaroxaban 20 mg tablet (Xarelto) 20 mg PO DAILY #30 tabs 11/27/23 Allergies Allergy/AdvReac Type Severity Reaction Status Date / Time No Known Allergies Allergy Verified 11/14/23 13:07 Review of Systems Review of Systems: Positive palpitation generalized malaise weakness Yes all other systems are reviewed and are negative [facility] Past Medical History Attestation statement: The following information was validated with the patient. Medical History Paroxysmal atrial fibrillation DELMA (obstructive sleep apnea) No significant past medical history Surgical History No history of previous surgery Family History Family History Mother Heart palpitations Father Heart palpitations Social History Social History Housing: House Alcohol intake: former Year quit: 2012 Patient Tobacco Use Status: Former Tobacco user Tobacco use type: Cigarette Cigarette Packs Per Day: 1 Smoked in Last 30 Days: Yes e-Cigarette/Vaping Use: Currently Using Second Hand Smoke Exposure: Yes Use of substances other than those prescribed or required for medical reasons: No Advance Directives: No service: No Current occupational status: unemployed Cognitive needs: No Hearing needs: No Vision needs: No Physical Exam Vital Signs: Vital Signs: Last Vital Signs Temp 97.6 F 11/27/23 12:15 Pulse 99 11/27/23 12:15 Resp 12 11/27/23 12:15 BP 159/92 H 11/27/23 12:15 Pulse Ox 98 11/27/23 12:15 O2 Del Method Room Air 11/27/23 12:15 BMI result Body Mass Index 32.5 Appearance: Alert. Oriented X3. No acute distress. Eyes: Pupils equal, round and reactive to light. ENT: Pharynx normal. Neck: Normal inspection. Neck supple. No lymph nodes noted. No crepitus CVS: Irregularly irregular Respiratory: No respiratory distress. Breath sounds normal. No Wheezing. No rales Abdomen: Soft and nontender. No rigidity. No distention. good BS x4 Skin: Skin warm and dry. Normal skin color. Normal skin turgor. Extremities: No lower extremity edema. Neurovascular intact to all extremities. No Lacerations. No Rash Neuro: Oriented X 3. No motor deficit. No sensory deficit. Moving all extermities. No slurred speech Medications Administered Discontinued Medications Generic Name Dose Route Start Last Admin Trade Name Freq PRN Reason Stop Dose Admin Flecainide Acetate 150 mg 11/27/23 12:14 11/27/23 12:59 Flecainide Acetate 50 Mg Tablet PO 11/27/23 12:15 150 mg ONCE ONE Administration Flecainide Acetate 150 mg 11/27/23 14:06 11/27/23 14:47 Flecainide Acetate 50 Mg Tablet PO 11/27/23 14:07 Not Given ONCE ONE Medical Decision Making Medical Decision Making MDM Narrative: My interpretation of patient's EKG shows an atrial fibrillation pattern heart rate is approximately 100 QRS is normal QTC is normal there is no acute ST segment elevation. Patient's Herrera Vasc score is 0. Has lightheadedness weakness palpitation that started at 01:00 specific time of onset. Onset time is about 12 hours at this point. The finding was discussed with Dr. Soto from Cardiology. Wanted patient to be cardioverted using flecainide 150 mg p.o. x1. Aware of patient's EKG finding. Aware patient's blood pressure and his electrolytes being normal. Aware that patient's 1st set of cardiac enzymes are negative. Risk and benefits of cardioversion discussed with patient. Agree with plan. Patient was given 150 mg of flecainide at the instruction of the family therapist. After about an hour patient converted to a sinus rhythm. My interpretation of the 2nd EKG showed a sinus rhythm heart rate was 80 WI QRS QTC within normal limits is no acute ST segment elevation. Cardiology wants patient be started on flecainide 50 mg twice a day. Additionally patient to be started on Xarelto 20 mg q.d.. Follow-up with cardiology on an outpatient basis. Differential Diagnosis Differential Diagnoses: The differential diagnosis associated with the presentation includes Atrial fibrillation Admission/Observation Consideration of admission/observation: Escalation of care including admission/observation considered Consult Healthcare Provider Management of the patient was discussed with: Sales Ledger Administrator (Cardiology) Lab Data 11/27/23 10:34 11/27/23 10:34 Labs: Lab Results 11/27/23 Range/Units 10:34 WBC 8.1 (4.8-10.8) X10*3/uL RBC 5.98 H (4.60-5.80) X10*6/uL Hgb 15.1 (14.0-18.0) g/dl Hct 46.4 (42.0-52.0) % MCV 77.6 L (80.0-98.0) fL MCH 25.3 L (27.0-33.0) pg MCHC 32.5 (31.0-36.0) g/dl RDW 13.2 (11.0-16.0) % Plt Count 238 (160-400) X10*3/uL MPV 10.1 (9.4-12.4) fL Immature Gran % (Auto) 0.4 (0.0-0.4) % Neut % (Auto) 75.3 H (45-73) % Lymph % (Auto) 16.9 L (20-40) % Mercer % (Auto) 6.1 (2-11) % Eos % (Auto) 0.9 (0-4) % Baso % (Auto) 0.4 (0-2) % Lymph # (Auto) 1.4 (1.2-4.9) X10*3/uL Mercer # (Auto) 0.5 (0.1-1.2) X10*3/uL Eos # (Auto) 0.1 (0.0-0.4) X10*3/uL Baso # (Auto) 0.0 (0.0-0.2) X10*3/uL Abs Immat Gran (auto) 0.03 (0.00-0.03) X10*3/uL Absolute Neuts (auto) 6.1 (2.0-8.3) x10*3/uL Absolute Nucleated RBC 0.000 (0.0-0.012) X10*3/uL Nucleated RBC % (auto) 0.0 (0.0-0.2) /100WBC Sodium 138 (135-145) mmol/L Potassium 4.2 (3.3-5.1) mmol/L Chloride 105 (96-108) mmol/L Carbon Dioxide 27 (22-29) mmol/L Anion Gap 10 L (12-20) BUN 9 (9-16) mg/dL Creatinine 0.69 (0.5-1.4) mg/dL Estim Creat Clear Calc 166.8 Estimated GFR > 60 Random Glucose 135 H (60-115) mg/dL Calcium 9.5 (8.4-10.2) mg/dL Troponin I High Sens < 2.7 (<3.5-35.0) ng/L B-Natriuretic Peptide 62 (<100) pg/mL TSH 0.57 (0.32-4.0) uIU/mL Ethyl Alcohol < 10 mg/dL Independent Interpretation I performed an independent interpretation of an: EKG (My interpretation patient's 2 EKG as above) Independent Historian Clinical information obtained from an independent historian. History obtained from or confirmed by: Spouse External Record Review External record reviewed: Inpatient record and Office record Critical Care Time Critical Care Time Critical Care Time: Yes Total Critical Care Time: 40 Attestation: I have personally provided 40 minutes of critical care time exclusive of time spent on separately billable procedures. ?Time includes review of lab data, radiology results, discussion with consultants, and monitoring for potential decompensation. ?Interventions were performed as documented above Discharge Plan Discharge Clinical Impression: Paroxysmal atrial fibrillation Patient Disposition: Home, Self-Care Instructions: A-fib (Atrial Fibrillation) (ED), Blood Thinners (ED) Prescriptions: New flecainide 50 mg tablet 50 mg PO Q12H Qty: 30 0RF Xarelto 20 mg tablet 20 mg PO DAILY Qty: 30 0RF Rx Instructions: must administer with evening meal No Action metoprolol succinate [Toprol XL] 50 mg tablet extended release 24 hr 50 mg PO BID Qty: 60 5RF buprenorphine-naloxone 8-2 mg film sublingual Referrals: Chris Soto MD [Physician] - 12/01/23
[2023-11-27 12:15] VITALS: BP 159/92; PULSE 99; RESP 12; TEMP 36.4; O2SAT 98
[2023-11-27] MEDS: Flecainide Acetate 50 MG TABLET 150 MG PO (12:59)
[2023-11-27 13:32] LABS: Ethanol < 10 mg/dL
[2023-11-27 13:45] LABS: Thyroid Stimulating Hormone 0.57 uIU/mL (0.32-4.0)
--- NOTE | 2023-11-27 14:13 | ECG_ITS ---
Test Reason : REPEAT Blood Pressure : / mmHG Vent. Rate : 081 BPM Atrial Rate : 081 BPM P-R Int : 186 ms QRS Dur : 094 ms QT Int : 396 ms P-R-T Axes : 074 037 047 degrees QTc Int : 460 ms Normal sinus rhythm Septal infarct (cited on or before 27-NOV-2023) Abnormal ECG When compared with ECG of 27-NOV-2023 10:16, Sinus rhythm has replaced Atrial fibrillation Non-specific change in ST segment in Inferior leads Referred By: Salina Mason Electronically Signed By:AMY VAUGHN MD
--- NOTE | 2023-11-27 14:45 | PC.NURSE ---
this nurse restarted care with pt at 1445 patient a&ox3, vss, pt has converted back to NSR, pt previously medicated and repeat ekg was performed, family at bedside, pt awaiting provider, will continue to monitor
[2023-11-27 15:41] VITALS: BP 145/94; PULSE 79; RESP 16; TEMP 36.9; O2SAT 98
[2023-11-27 16:00] VITALS: BP 145/94; PULSE 79; RESP 16; TEMP 36.9; O2SAT 98
== END 2023-11-27 16:00 | disposition home or self-care (01) ==
PROVIDERS: Emergency Provider Emergency Medicine Emergency Medical Services; PCP Physician Assistant
DX: I48.0 Paroxysmal atrial fibrillation (principal); I49.9 Cardiac arrhythmia, unspecified; R00.2 Palpitations; R53.1 Weakness; R06.02 Shortness of breath; Z79.899 Other long term (current) drug therapy; Z87.891 Personal history of nicotine dependence
CPT/HCPCS: 36415; 80048; 80307; 83880; 84443; 84484; 85025; 93005; 99283; 99285

== ENCOUNTER → 2023-11-27 10:15 | Outpatient (BNV) | payer OTHER, SELFPAY | PROVIDERS: Emergency Provider Emergency Medicine Emergency Medical Services; PCP Physician Assistant; Visit Provider Internal Medicine Cardiovascular Disease | DX: I48.91 Unspecified atrial fibrillation (principal) | CPT/HCPCS: 93010 ==

== ENCOUNTER 2023-12-01 13:28 | Outpatient (AMB) | payer OTHER, SELFPAY ==
[2023-12-01 13:30] VITALS: BP 160/74; BMI 31.9
--- NOTE | 2023-12-01 13:30 | MHC.OFFVIS ---
Intake Vital Signs 12/01/23 13:30 Height 6 ft Weight 235 lb 7.259 oz BMI 31.9 BP 160/74 H Blood Pressure Location Lt brachial Position Sitting Intake Visit Reasons: [facility]/11-26/AFIB Human Resources Operations Manager Required: No Allergies No Known Allergies Allergy (Verified 12/01/23 13:32) Medication List - Last Reconciled 12/01/23 by Any Valentino, FIBERLINE SUPERVISOR-C buprenorphine-naloxone 8-2 mg film sublingual flecainide 50 mg PO Q12H metoprolol succinate ER (Toprol XL) 50 mg PO BID rivaroxaban (Xarelto) 20 mg PO DAILY HPI [facility]/11-26/AFIB HPI Details Dl is a 48-year-old male with past medical history of smoking, sleep apnea, palpitations, new finding of paroxysmal atrial fibrillation and was on metoprolol who was seen in the [facility] emergency room on 11/27/2023 with AFib RVR that was treated with flecainide 150 mg p.o. x1 with conversion to normal sinus rhythm after 1 hour. He was sent home with flecainide 50 mg b.i.d. along with his metoprolol. He was also started on Xarelto. He now presents for follow-up. Today he reports that he has notice brief heart palpitations since his ER visit. He is very anxious about his new diagnosis. Does not want to have a sustained AFib again as he does not feel well with it. He describes having shortness of breath and feeling the palpitations. His chest feels uncomfortable as well during the AFib episodes. He has not had any exertional chest discomfort. No shortness of breath when not in AFib. No lightheadedness, presyncope, syncope, falls. No PND, orthopnea or edema. No bleeding issues with Xarelto. Taking meds as directed. Has been trying to take it easy as he is very worried about his health. He did see the sleep medicine provider and picks up his new CPAP mask tomorrow. [facility] Medical History Paroxysmal atrial fibrillation DELMA (obstructive sleep apnea) No significant past medical history Surgical History No history of previous surgery Family History Mother Heart palpitations Father Heart palpitations Social History Housing: House Alcohol intake: former Year quit: 2012 Patient Tobacco Use Status: Former Tobacco user Tobacco use type: Cigarette Cigarette Packs Per Day: 1 e-Cigarette/Vaping Use: Currently Using Second Hand Smoke Exposure: Yes service: No Current occupational status: unemployed Cognitive needs: No Hearing needs: No Vision needs: No Review of Systems Const All systems reviewed & are unremarkable except as noted in HPI and below ENT Denies dizziness Card Denies chest pain, Denies chest pain at rest, Denies chest pain with activity, Denies rapid heart rate, Denies pedal edema, Denies edema, Denies leg edema, Denies lightheadedness, Denies palpitations, Denies dyspnea, Denies dyspnea on exertion and Denies orthopnea Resp Denies cough, Denies dyspnea and Denies dyspnea on exertion GI Denies hematochezia and Denies change in stool character Musc Denies abnormal gait, Denies limited range of motion, Denies muscle cramps, Denies muscle weakness, Denies numbness, Denies radiating pain into limb, Denies stiffness and Denies tingling Neuro Denies abnormal gait, Denies dizziness, Denies numbness and Denies tingling Endo Denies palpitations Physical Exam Vital Signs: Last Vital Signs BP 160/74 H 12/01/23 13:30 BMI result Body Mass Index 31.9 Const General: cooperative, healthy appearing, comfortable and no acute distress Orientation/consciousness: patient oriented x3 Neck Neck: Yes normal visual inspection and Yes no JVD Resp Effort & Inspection: normal respiratory effort Auscultation: clear to auscultation bilaterally, no crackles, no rales, no rhonchi and no wheezes Cardio Jugular venous distension: no JVD Rate: regular rate Rhythm: regular rhythm Heart sounds: S1 normal heart sound present, S2 normal heart sound present, no murmurs and no rubs Neuro General: patient oriented x3 Extrem General: Yes normal to inspection, No no pedal edema and No calf tenderness Psych Appearance: grossly normal Mental Status: mental status grossly normal Speech and movement: Normal speech and movement present Office Procedures EKG Details: Today, read by me, sinus bradycardia, septal Q-wave from prior, rate 56, QTC 413 milliseconds [id number], Complete Assessment & Plan Assessment & Plan (1) Paroxysmal atrial fibrillation: Code(s): I48.0 - Paroxysmal atrial fibrillation Plan: Recent reports of heart palpitations, skipped heartbeats and rapid heart rates. Known history of SVT with a clinically significant episode approximately 20 years ago, which required emergency room treatment. Holter monitor done 08/08/2023 for 3 days shows sinus rhythm with average heart rate 85, rare PACs, 119 beat run of SVT at 157 per minute. He had been on metoprolol XL 50 mg daily. An echocardiogram done 10/09/2023 showed normal study. A repeat Holter monitor done 10/09/2023 shows sinus rhythm with average heart rate 76, rare SVE and VE. He then had an episode of prolonged heart palpitations and went to [facility] where he had EKG showing atrial fibrillation/flutter with RVR. His metoprolol was increased to 50 mg b.i.d. He was put on a cardiac event monitor to evaluate for recurrent atrial fibrillation. It did show AFib RVR, full report is not available at this time. He saw Dr. Soto in follow-up that day, 11/27/2023. He was referred to the [facility] emergency room where he was given flecainide 150 mg x 1. After an hour he converted to sinus rhythm. He was then started on flecainide 50 mg b.i.d. in addition to his metoprolol XL 50 mg b.i.d.. He was started on Xarelto for anticoagulation. He does have CHADS-VASc score of 0. Anticoagulation is being used at this time. Today he presents for follow-up stating that he has had brief flutters since his emergency room visit. EKG done today showing sinus bradycardia, septal Q-wave, unchanged from last EKG, rate 56, QTC 413 milliseconds. He is very anxious about recurrent atrial fibrillation as he does not feel well when he is in it. With flecainide use of stress test is ordered. His blood pressure is elevated today and he does have paroxysmal AFib a pharmacological stress test may be needed. Will change his stress test to a exercise nuclear stress test. If needed could be changed to Lexiscan at that time. If not approved by insurance then will change back to an exercise stress test only. He does have a known diagnosis of sleep apnea and says he is picking up his CPAP mask tomorrow. His prior mask was ineffective for him. Emergency medical care if needed for recurrent sustained AFib. He can also call our office and speak to on-call doctor. Continue current meds. Avoid stimulants, stay well hydrated. Cardiology follow-up in 4-6 weeks, sooner if needed. (2) Palpitations: Code(s): R00.2 - Palpitations Plan: As above (3) SVT (supraventricular tachycardia): Code(s): I47.10 - Supraventricular tachycardia, unspecified Plan: As above. Intermittent SVT seen on prior Holter. Continue current metoprolol and flecainide. Different vagal maneuvers reviewed. Instructed on avoidance of stimulants. (4) DELMA (obstructive sleep apnea): Code(s): G47.33 - Obstructive sleep apnea (adult) (pediatric) Plan: Has been following with Sleep Medicine and will be picking up a new CPAP mask tomorrow. The importance of sleep apnea treatment compliance reviewed with him. (5) Elevated blood pressure reading: Code(s): R03.0 - Elevated blood-pressure reading, without diagnosis of hypertension Plan: Blood pressure elevated today. Patient is quite anxious about his diagnosis of atrial fibrillation. Blood pressure initially 160/74, recheck done by me 154/72. No med changes made. Instructed to reduce salt in his diet. If blood pressure continues to be elevated at follow-up visit then he may need additional antihypertensive agent. Plan Time spent on chart review, documentation, interview and assessment Orders: Orders CA stress test Today I48.0 - Paroxysmal atrial fibrillation, R00.2 - Palpitations, R03.0 - Elevated blood-pressure reading, without diagnosis of hypertension NM cardiolite stress test Today I48.0 - Paroxysmal atrial fibrillation, R00.2 - Palpitations, R03.0 - Elevated blood-pressure reading, without diagnosis of hypertension Coding Level of Care Code Est Pt Level 4 (62548) Diagnoses Paroxysmal atrial fibrillation I48.0 Palpitations R00.2 SVT (supraventricular tachycardia) I47.10 DELMA (obstructive sleep apnea) G47.33 Elevated blood pressure reading R03.0 CPT Codes EKG - CPT: 25818-[id number], Complete ([id number]) Time Spent (min) 28
== END 2023-12-01 14:49 | disposition home or self-care (01) ==
PROVIDERS: PCP Physician Assistant; Visit Provider Nurse Practitioner Family
DX: I48.0 Paroxysmal atrial fibrillation (principal); R00.2 Palpitations; I47.10 Supraventricular tachycardia, unspecified; G47.33 Obstructive sleep apnea (adult) (pediatric); R03.0 Elevated blood-pressure reading, without diagnosis of hypertension
CPT/HCPCS: 93010; 99214

== ENCOUNTER → 2023-12-01 13:28 | Outpatient (BNVA) | payer OTHER, SELFPAY | PROVIDERS: PCP Physician Assistant; Visit Provider Nurse Practitioner Family | DX: I48.0 Paroxysmal atrial fibrillation (principal); R00.2 Palpitations; I47.10 Supraventricular tachycardia, unspecified; G47.33 Obstructive sleep apnea (adult) (pediatric); R03.0 Elevated blood-pressure reading, without diagnosis of hypertension | CPT/HCPCS: 93005; 99212 ==

== ENCOUNTER → 2024-01-06 09:23 | Outpatient (REF) | payer OTHER, SELFPAY ==
--- NOTE | ~2024-01-06 | NM_ITS ---
Lexiscan Myocardial perfusion study Indication: Atrial fibrillation, assess for coronary disease and ischemia Technique: The patient was brought in for a Lexiscan perfusion study on 01/06/2024 and was injected 0.4 mg of Lexiscan intravenously. Within a minute of this injection 35 mCi of sestamibi was given intravenously. Images were obtained using the SPECT gamma camera interlaced with the gating device. Images were obtained in supine position. Resting perfusion study was performed on 01/07/2024. Patient was administered 35 mCi of sestamibi intravenously at rest. Images were then obtained in supine position. Images were processed with the software and compared side to side in short axis, horizontal long axis and vertical long axis views. Total DLP 124mGy-cm. Findings: Raw acquisition reviewed. The stress perfusion study showed diminished tracer uptake along the inferior wall. There is improvement with CT attenuation correction suggestive of diaphragmatic attenuation artifact. The gated study shows normal LV systolic function with calculated LVEF of 51%. LV cavity is normal in size. The gated study shows normal wall thickening and contraction of segments. Resting study shows diminished tracer uptake along the inferior wall. There is improvement with CT attenuation correction suggestive of diaphragmatic attenuation artifact. Gating at rest reveals normal wall motion with ejection fraction at 63%. The findings are consistent with fixed inferior perfusion defect likely from diaphragmatic attenuation artifact. No clear reversible defects. NM/NM cardiolite stress test Impression: 1. Myocardial perfusion imaging study shows probably normal myocardial perfusion. 2. Gated LVEF is 51% during stress and 63% during rest. Correlate with echocardiogram. 3. Transient ischemic dilatation not present. EKG component of the test reported separately.
--- NOTE | 2024-01-06 09:26 | CA_ITS ---
Acquisition Time: 2024-01-06 09:44:51 Total Exercise Time: 00:08:16 Test Indications: afib, svt Medications: see h Protocol: ESHA Max HR: 106 BPM 61% of Pred: 172 BPM Max BP: 184/072 mmHG Max Work Load: 10.1 METS Exercise stress test exercise 8 min 16 sec of Esha protocol achieving 60% MPHR , with request to stop due to fatigue and 3/10 chest discomfort, with mild SOB, without arrhythmais, with normotensive response to exercise, without EKG changes at achieved workload. Chest discomfort resolved with rest by 3 minutes of recovery. Test changed to pharmacological stress test with Lexiscan. Pharmacological stress test with Lexiscan injeciton while sitting and kicking his legs, without anginal symptoms, without arrhythmias, with normotensive response to injection, with nondiagnoisitic EKGs. Aminophylline 75mg IVP given to reverse Lexiscan. Nuclear images pending. Test reviewed with Dr. Soto Referred By: Any Valentino Overread By: Kiersten Andujar
== END ==
LOC: HO.CARD 09:23
PROVIDERS: PCP Physician Assistant; Visit Provider Nurse Practitioner Family
DX: I48.0 Paroxysmal atrial fibrillation (principal); R00.2 Palpitations; R03.0 Elevated blood-pressure reading, without diagnosis of hypertension
CPT/HCPCS: 78452; 93017; A9500; J0280; J2785

== ENCOUNTER → 2024-01-06 09:26 | Outpatient (BNV) | payer OTHER, SELFPAY | PROVIDERS: PCP Physician Assistant; Visit Provider Nurse Practitioner | DX: I48.91 Unspecified atrial fibrillation (principal) | CPT/HCPCS: 78452; 93016; 93018 ==

== ENCOUNTER 2024-01-08 14:51 | Outpatient (AMB) | payer OTHER, SELFPAY ==
--- NOTE | 2024-01-08 14:54 | MHC.OFFVIS ---
Vital Signs 01/08/24 15:06 Height 6 ft Weight 233 lb 8 oz BMI 31.7 BP 140/82 H Blood Pressure Location Lt brachial Position Sitting Pulse 55 Pulse Source Pulse Oximeter Pulse Oximetry (%) 97 Oxygen Delivery Method Room Air Intake Visit Reasons: Follow up Intake Note: Patient presents for f/u. diagnose with Afib and using the CPAP machine pt. feels his heart beating fast. Not sure if it is because pt. is not breathing. Allergies No Known Allergies Allergy (Verified 01/08/24 15:03) HPI Comments Details: 48 y/o male patient presents for follow up of sleep apnea. Pt was diagnosed with DELMA last year, and started CPAP. However, he stopped using CPAP and restarted 6 months ago. Pt started using nasal mask, but he sleep open his mouth. Advised patient to try chin strap with nasal mask. However, he tried full face mask with chin strap for twice. He felt his heart racing and scared, and not using CPAP. He wakes up every hour, and having non refreshing sleep. The home sleep study result was severe degree of sleep apnea. The total AHI was 46/hr and oxygen ricardo was 80%. The total duration of O2 sat below 88% was 15 min. [facility] Medical History Paroxysmal atrial fibrillation DELMA (obstructive sleep apnea) No significant past medical history Surgical History No history of previous surgery Family History Mother Heart palpitations Father Heart palpitations Social History Housing: House Alcohol intake: former Year quit: 2012 Patient Tobacco Use Status: Former Tobacco user Tobacco use type: Cigarette Cigarette Packs Per Day: 1 e-Cigarette/Vaping Use: Currently Using Second Hand Smoke Exposure: Yes service: No Current occupational status: unemployed Cognitive needs: No Hearing needs: No Vision needs: No Review of Systems Const All systems reviewed & are unremarkable except as noted in HPI and below Physical Exam Vital Signs: Last Vital Signs Pulse 55 01/08/24 15:06 BP 140/82 H 01/08/24 15:06 Pulse Ox 97 01/08/24 15:06 Oxygen Delivery Method Room Air 01/08/24 15:06 BMI result Body Mass Index 31.7 Const General: cooperative Nutritional Appearance: obese Orientation/consciousness: patient oriented x3 Neck Neck: Yes full ROM and Yes supple Resp Effort & Inspection: normal respiratory effort and able to speak in complete sentences Neuro General: patient oriented x3, gait normal and moves all extremities Cognition (Neuro): normal cognition Gait exam (Neuro): Normal gait present Motor exam (neuro): 5/5 motor strength present throughout Psych Appearance: grossly normal Mental Status: mental status grossly normal Speech and movement: Normal speech and movement present Affect: normal affect Attitude: cooperative Assessment & Plan Assessment & Plan (1) DELMA (obstructive sleep apnea): Code(s): G47.33 - Obstructive sleep apnea (adult) (pediatric) Category: Medical Plan Advised patient to use full face mask without chin strap. Continue to use APAP [id number]. Stressed compliance, use CPAP nightly and more than 4 hrs. Advised patient to try CPAP when he rest and watching TV to get used to it. Wt reduction advised. Coding Level of Care Code Est Pt Level 3 (30935) Diagnoses DELMA (obstructive sleep apnea) G47.33
[2024-01-08 15:06] VITALS: BP 140/82; PULSE 55; O2SAT 97; BMI 31.7
== END 2024-01-08 15:21 | disposition home or self-care (01) ==
PROVIDERS: PCP Physician Assistant; Visit Provider Nurse Practitioner Family
DX: G47.33 Obstructive sleep apnea (adult) (pediatric) (principal)
CPT/HCPCS: 99213

== ENCOUNTER → 2024-01-08 14:51 | Outpatient (BNVA) | payer OTHER, SELFPAY | PROVIDERS: PCP Physician Assistant; Visit Provider Nurse Practitioner Family | DX: G47.33 Obstructive sleep apnea (adult) (pediatric) (principal); Z99.89 Dependence on other enabling machines and devices | CPT/HCPCS: 99212 ==

== ENCOUNTER 2024-01-13 08:45 | Outpatient (AMB) | payer OTHER, SELFPAY ==
--- NOTE | 2024-01-13 08:48 | A.OFFVIS_ITS ---
Vital Signs 01/13/24 08:49 Height 6 ft Weight 231 lb 7.766 oz BMI 31.4 BP 128/80 Blood Pressure Location Lt brachial Position Sitting Pulse 57 Intake Visit Reasons: 6 wk fu Intake Note: 6 week follow-up with ekg c/o still having some palpitations Rn Residential Required: No Allergies No Known Allergies Allergy (Verified 01/08/24 15:03) Medication List - Last Reconciled 01/13/24 by Chris Soto MD buprenorphine-naloxone 8-2 mg film sublingual flecainide 100 mg PO Q12H metoprolol succinate ER (Toprol XL) 50 mg PO BID HPI Comments Details: Dl comes for follow-up. He continues to symptoms of palpitation. Remains highly anxious about the symptoms. He has not had any prolonged episodes of atrial fibrillation although says that he feels like his heart might go into atrial fibrillation. He has currently not on oral anticoagulation therapy. He is currently taking metoprolol. Blood pressures been well controlled. Remains without any symptoms exertional chest pain or shortness of breath. He said he can not tolerate CPAP therapy for more than an hour and usually has to take off his mask. He does not put that back on himself again. Denies any prolonged atrial fibrillation episode or any ED presentation since starting flecainide. [facility] Medical History Paroxysmal atrial fibrillation DELMA (obstructive sleep apnea) No significant past medical history Surgical History No history of previous surgery Family History Mother Heart palpitations Father Heart palpitations Social History Housing: House Alcohol intake: former Year quit: 2012 Patient Tobacco Use Status: Former Tobacco user Tobacco use type: Cigarette Cigarette Packs Per Day: 1 e-Cigarette/Vaping Use: Currently Using Second Hand Smoke Exposure: Yes service: No Current occupational status: unemployed Cognitive needs: No Hearing needs: No Vision needs: No Review of Systems Const Denies chills, Denies fatigue, Denies fever(s), Denies frequent falls, Denies weakness, Denies weight gain and Denies weight loss ENT Denies dizziness Card Denies chest pain, Denies leg edema, Denies lightheadedness, Denies palpitations, Denies dyspnea, Denies dyspnea on exertion, Denies orthopnea and Denies other (loss of consciousness) Resp Denies cough, Denies dyspnea and Denies dyspnea on exertion GI Denies hematochezia and Denies change in stool character Musc Denies abnormal gait, Denies muscle weakness, Denies numbness, Denies radiating pain into limb and Denies tingling Neuro Denies abnormal gait, Denies dizziness, Denies frequent falls, Denies numbness, Denies tingling and Denies weakness Endo Denies fatigue and Denies palpitations Physical Exam Vital Signs: Last Vital Signs Pulse 57 01/13/24 08:49 BP 128/80 01/13/24 08:49 BMI result Body Mass Index 31.4 Const General: cooperative, healthy appearing, comfortable, no acute distress and anxious Orientation/consciousness: patient oriented x3 Neck Neck: Yes normal visual inspection and Yes no JVD Resp Effort & Inspection: normal respiratory effort Auscultation: clear to auscultation bilaterally, no crackles, no rales, no rhon chi and no wheezes Cardio Jugular venous distension: no JVD Rate: regular rate Rhythm: regular rhythm Heart sounds: S1 normal heart sound present, S2 normal heart sound present, no murmurs and no rubs Neuro General: patient oriented x3 Extrem General: Yes normal to inspection, No no pedal edema and No calf tenderness Psych Appearance: grossly normal Mental Status: mental status grossly normal Speech and movement: Normal speech and movement present Office Procedures EKG Details: EKG shows sinus bradycardia with QS pattern in lead V1 V2 otherwise normal EKG 47457-[id number], Complete Assessment & Plan Assessment & Plan (1) Paroxysmal atrial fibrillation: Code(s): I48.0 - Paroxysmal atrial fibrillation Category: Medical Plan: Highly symptomatic paroxysmal atrial fibrillation with continued symptoms. Some of his symptoms are I think driven by his anxiety associated with the findings of atrial fibrillation. Discuss this with him. Stress mitigation strategies needs to be pursued. He is very interested in pursuing this further with a catheter ablation. I discussed mechanism of catheter ablation treatment for management of atrial fibrillation. For now will increase flecainide to 150 mg b.i.d.. Continue concomitant metoprolol therapy to reduce AV conduction if he goes into rapid atrial flutter. Also there is no indication for oral anticoagulation therapy. Avoidance of stimulants such as caffeine and alcohol was discussed. Blood pressure is well optimized. Importance of treatment of sleep apnea was discussed as this is probably likely responsible for recurrent atrial fibrillation. Advised to follow-up with his sleep specialist. Will refer him to EPS for consideration for ablation therapy. Will follow up in the clinic in 6 months time, sooner p.r.n.. Thank you for allowing me to partake in his care Orders: Orders ECG 30 day event monitor 1 Month I48.0 - Paroxysmal atrial fibrillation Referrals Cardiac Electrophysiology Referral I48.0 - Paroxysmal atrial fibrillation Medications: New flecainide 150 mg PO Q12H 90 tabs 6RF flecainide 150 mg PO Q12H 180 tabs 2RF I48.0 - Paroxysmal atrial fibrillation Discontinued flecainide Discontinued Reason: Doctor's Order 100 mg PO Q12H 60 tabs 5RF Coding Level of Care Code Est Pt Level 4 (10345) Diagnoses Paroxysmal atrial fibrillation I48.0 CPT Codes EKG - CPT: 18130-[id number], Complete ([id number])
[2024-01-13 08:49] VITALS: BP 128/80; PULSE 57; BMI 31.4
== END 2024-01-13 09:31 | disposition home or self-care (01) ==
PROVIDERS: PCP Physician Assistant; Visit Provider Internal Medicine Cardiovascular Disease
DX: I48.0 Paroxysmal atrial fibrillation (principal)
CPT/HCPCS: 93010; 99214

== ENCOUNTER → 2024-01-13 08:45 | Outpatient (BNVA) | payer OTHER, SELFPAY | PROVIDERS: PCP Physician Assistant; Visit Provider Internal Medicine Cardiovascular Disease | DX: I48.0 Paroxysmal atrial fibrillation (principal) | CPT/HCPCS: 93005; 99212 ==

== ENCOUNTER → 2024-02-16 10:55 | Outpatient (REF) | payer OTHER, SELFPAY ==
--- NOTE | 2024-02-16 10:57 | HM_ITS ---
* Procedure length 32 days. Wear time 5.7 days. * Underlying rhythm is sinus with an average rate of 64/Min. About 47% of the time, sinus bradycardia. * Rare ventricular ectopy. * Patient activated the symptom button 7 times. Correlation with sinus rhythm, sinus bradycardia, PVC. MTDD
== END ==
LOC: HO.CARD 10:55
PROVIDERS: PCP Physician Assistant; Visit Provider Nurse Practitioner Family
DX: I48.0 Paroxysmal atrial fibrillation (principal)
CPT/HCPCS: 93270

== ENCOUNTER → 2024-02-16 10:57 | Outpatient (BNV) | payer OTHER, SELFPAY | PROVIDERS: PCP Physician Assistant; Visit Provider Internal Medicine | DX: R00.1 Bradycardia, unspecified (principal) | CPT/HCPCS: 93272 ==

== ENCOUNTER 2024-02-18 10:44 | Outpatient (AMB) | payer OTHER, SELFPAY ==
[2024-02-18 10:47] VITALS: BP 168/82; PULSE 60; O2SAT 98; BMI 30.8
--- NOTE | 2024-02-18 10:47 | MHC.PC.OV ---
Vital Signs 02/18/24 10:47 Height 6 ft Weight 227 lb BMI 30.8 BP 168/82 H Blood Pressure Location Lt brachial Position Sitting Pulse 60 Pulse Source Pulse Oximeter Pulse Oximetry (%) 98 Oxygen Delivery Method Room Air Intake Visit Reasons: PE- NEEDS PHQ9 Animal Physiologist Required: No Accompanied by: Self / Same As Patient Allergies No Known Allergies Allergy (Verified 02/18/24 11:01) Medication List - Last Reconciled 02/18/24 by Terence Garcia PA-C buprenorphine-naloxone 8-2 mg film sublingual flecainide 150 mg PO Q12H metoprolol succinate ER (Toprol XL) 50 mg PO BID Tobacco use date assessed: 02/18/24 Dental Screening Dental Screen Date: 02/18/24 Did you have a dental visit in the last 12 months?: No Did you have a dental problem in the last 6 months where you did not have access to dental care?: No Was dental information given to patient?: Patient has dentist HPI PE- NEEDS PHQ9 HPI Details Patient is a 48 year male here today for an annual physical. Patient has a past medical history significant DELMA, opiate dependence, paroxysmal AFib migraines. .. Concerns--> about his blood pressure as it has been elevated at many occasions. .. Paroxysmal AFib: Continues to follow [facility]. Continues on flecainide 150 b.i.d. and metoprolol 50 mg b.i.d.. He still reports having palpitations from time to time. Since increasing dose of flecainide his palpitations have much better. Has been referred to cardiac design printing machine set up operator for possible ablation. Of note does have family history of AFib .. Former SMoker: quit smoking a few years ago and I congratulated him on this. He does report still smoking an E cigarette at times . Opiate dependence: [facility] and is on [facility]. Colon cancer screening: Need Colonoscopy -willing to do Cologuard Vaccines: Up-to-date with pneumonia vaccine, COVID vaccine. Needs tetanus vaccine PFSH Medical History Paroxysmal atrial fibrillation DELMA (obstructive sleep apnea) No significant past medical history Surgical History No history of previous surgery Family History (Updated 02/18/24 @ 11:06 by Terence Garcia PA-C) Mother Heart palpitations Father Heart palpitations Brother Afib Social History (Updated 02/18/24 @ 11:10 by Terence Garcia PA-C) Housing: House Alcohol intake: former Year quit: 2012 Patient Tobacco Use Status: Former Tobacco user Tobacco use type: Cigarette and Smokeless Tobacco Cigarette Packs Per Day: 1 e-Cigarette/Vaping Use: Currently Using Second Hand Smoke Exposure: Yes service: No Current occupational status: employed 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 1. Little interest or pleasure in doing things: not at all 2. Feeling down, depressed, or hopeless: not at all 3. Trouble falling or staying asleep, or sleeping too much: not at all 4. Feeling tired or having little energy: not at all 5. Poor appetite or overeating: not at all 6. Feeling bad about yourself - or that you are a failure or have let yourself or your family down: not at all 7. Trouble concentrating on things, such as reading the newspaper or watching television: not at all 8. Moving or speaking so slowly that other people could have noticed. Or the opposite - being so fidgety or restless that you have been moving around a lot more than usual: not at all 9. Thoughts that you would be better off or of hurting yourself in some way: not at all Total score: 0 Depression Screening Interpretation: Negative Depression Screening Done: Yes 68102 - PHQ-9 Billing: Yes Source: Developed by Drs. Tavon Rinaldi, Klaudia Casey, Dg Beatty and colleagues, with an educational coral from [employer] Thrive Questionnaire Date Thrive assessed: 02/14/23 I am a: Patient What is your living situation today?: I have a steady place to live Within the past 12 months, did the food you bought not last and you didn't have the money to get more?: Never true Within the past 12 months, did you worry whether your food would run out before you got money to buy more?: Never true Do you have trouble paying for medicines?: No Do you have trouble getting transportation to medical appointments?: No Do you have trouble paying your heating and electricity bill?: No Do you have trouble taking care of your child, family member or friend?: No Do you have trouble with day-to-day activities such as bathing, preparing meals, shopping, managing finances, etc.?: No Are you currently unemployed and looking for a job?: No Are you interested in more education?: No Please select the resources that you would like help with: None Currently or been in a relationship where the following occur: no concerns reported THRIVE Score: 0 AUDIT C Alcohol Use Questionnaire (AUDIT-C) 1. How often do you have a drink containing alcohol?: Never Total Score: 0 DIOGO-7 AMB Questionnaire DIOGO-7 Date DIOGO - 7 assessed: 02/18/24 Feeling nervous, anxious, or on edge: 0 = Not at all Not being able to stop or control worryin = Not at all Worrying too much about different things: 0 = Not at all Trouble relaxin = Not at all Being so restless that it is hard to sit still: 0 = Not at all Becoming easily annoyed or irritable: 0 = Not at all Feeling afraid as if something awful might happen: 0 = Not at all Total DIOGO-7 score (0-4 normal; 5-9 mild; 10-14 moderate; 15-21 severe): 0 Source: Developed by Drs. Tavon Rinaldi, Klaudia Casey, Dg Beatty and colleagues, with an educational coral from [employer] DIOGO-7 Assessment Billing DIOGO-7 Assessment Tool: DIOGO-7 Assessment 68325 Review of Systems Const Denies body aches, Denies chills, Denies excessive sweating, Denies fatigue, Denies fever(s) and Denies headache(s) Eyes Denies blurry vision ENT Denies dysphagia, Denies vertigo, Denies dizziness, Denies headache(s), Denies hearing loss and Denies tinnitus Card Denies chest pain, Denies chest pain with activity, Denies syncope, Denies irregular heart rhythm and Denies dyspnea Resp Denies chest congestion, Denies cough, Denies hemoptysis, Denies dyspnea and Denies wheezing GI Denies abdominal pain, Denies melena, Denies hematochezia, Denies coffee ground emesis, Denies dysphagia, Denies diarrhea, Denies nausea and Denies vomiting Denies difficulty urinating, Denies dysuria, Denies urinary frequency, Denies urinary hesitancy and Denies urinary urgency Musc Denies arthralgias, Denies limited range of motion, Denies muscle cramps and Denies muscle weakness Skin/Breast Denies rash and Denies skin ulcer Neuro Denies Abnormal speech present, Denies confusion, Denies vertigo, Denies dizziness, Denies syncope, Denies headache(s), Denies memory loss and Denies seizure-like activity Psych Denies anxiety, Denies confusion, Denies depression, Denies memory loss, Denies panic attacks and Denies paranoia Endo Denies excessive sweating, Denies fatigue, Denies flushing, Denies polydipsia and Denies polyuria Aller/Immun Denies wheezing Physical exam (Primary Care) Vital Signs: Last Vital Signs Pulse 60 02/18/24 10:47 BP 168/82 H 02/18/24 10:47 Pulse Ox 98 02/18/24 10:47 Oxygen Delivery Method Room Air 02/18/24 10:47 BMI result Body Mass Index 30.8 Tobacco/Smoking Status: Tobacco use Status Tobacco use date assessed 02/18/24 02/18/24 10:58 Patient Tobacco Use Status Former Tobacco user 02/18/24 11:10 Tobacco use type Cigarette,Smokeless Tobacco 02/18/24 11:10 e-Cigarette/Vaping Use Currently Using 02/18/24 11:10 PHQ-9: PHQ-9 Score PHQ-9: Total score 0 02/18/24 11:18 Depression Screening Interpretation: Negative Thrive Assessment: Date of Thrive Assessment Date Thrive assessed 02/14/23 02/18/24 10:51 Currently or been in a relationship where the following occur: no concerns reported Const General: cooperative, comfortable, no acute distress, alert and awake; No confusion Orientation/consciousness: oriented to person, oriented to place, patient oriented x3 and No confusion HENMT Head: Yes normocephalic Ears: external ears normal and TM's normal bilaterally Face and sinus: No sinus tenderness Mouth: Normal oral and palatal mucosa present and tongue normal Teeth and gingiva: dentition normal and gingiva normal Throat: Yes posterior oropharynx normal, Yes tonsils normal and Yes uvula midline Eyes Conjunctivae: conjunctivae normal Sclerae: sclerae normal Pupils: Equal, round and reactive pupils present EOM: EOMs intact bilaterally Direct Ophthalmoscopy: No no photophobia Neck Neck: Yes no lymphadenopathy, No tender and Yes no JVD Thyroid: Thyroid normal Carotids: no bruits Chest Chest palpation & inspection: no tenderness Resp Effort & Inspection: normal respiratory effort, no audible wheezes, not labored and no stridor Auscultation: no crackles, no rales, no rhonchi and no wheezes Cardio Jugular venous distension: no JVD Rate: regular rate, not bradycardic and not tachycardic Rhythm: regular rhythm Bruits: no carotid bruits Peripheral pulses: Peripheral pulses 2+ throughout GI Inspection: Yes normal to inspection, No abdominal wall ecchymosis and No visible herniation Palpation (GI): Soft to palpation, nontender, no guarding, not rigid and No hepatosplenomegaly present Auscultation: normoactive bowel sounds General: Yes no CVA tenderness Back/Spine/Pelvis Back: no CVA tenderness and No back tenderness Cervical Spine: cervical ROM normal Thoracic/Lumbar Spine: thoracic and lumbar spine normal to inspection, straight leg raise negative bilaterally, No thoraco-lumbar ROM limited and No lumbar spinal tenderness Skin Lesions: no lesions Rashes: no rashes Wounds: no wounds Neuro General: oriented to person, oriented to place, patient oriented x3, CN's II-XI intact bilaterally and No confusion Cranial nerves: Yes Equal, round and reactive pupils present and Yes Normal accommodation reflex present Cognition (Neuro): normal cognition Speech: No Abnormal speech present Gait exam (Neuro): Normal gait present Motor exam (neuro): 5/5 motor strength present throughout Extrem Right upper extremity: full ROM; no cyanosis Left upper extremity: full ROM; no cyanosis Right lower extremity: no edema Left lower extremity: no edema Psych Appearance: grossly normal Mental Status: mental status grossly normal Affect: normal affect Attitude: cooperative Thought process: Normal thought process present Immunizations Boostrix Tdap 2.5 Lf unit-8 mcg-5 Lf/0.5 mL intramuscular syringe Performing Provider: Terence Garcia PA-C Performing Location: [facility] Administered by: JO Maldonado on 02/18/24 11:18 Dose Route Admin Location Dispensed Lot Number Expiration Date NDC Merchandise Clerk 0.5 mL IM Left Deltoid 0.5 mL [id number] 04/22/26 [id number] [employer] VIS Given Date VIS Provided VIS Publication Date 02/18/24 Single Vaccine 21 Eligibility Eligibility Date Funding Source Not [facility] Eligible 02/18/24 Private Assessment and Plan Assessment & Plan (1) Annual physical exam: Code(s): Z00.00 - Encounter for general adult medical examination without abnormal findings (2) Paroxysmal atrial fibrillation: Code(s): I48.0 - Paroxysmal atrial fibrillation Plan: Patient continues to follow cardiology. Continues on flecainide 150 b.i.d. and metoprolol 50 b.i.d. with decent affect on controlling rate and rhythm. Still has some breakthrough palpitations and will be seeing a design printing machine set up operator to discuss possibly having ablation procedure. (3) HTN (hypertension): Code(s): I10 - Essential (primary) hypertension Qualifiers: Hypertension type: primary hypertension Qualified Code(s): I10 - Essential (primary) hypertension Plan: Patient's blood pressure elevated today office, has been elevated at other office visits. Will start lisinopril 10 mg and have patient monitor blood pressure at home with goal blood pressure to be below 140/90 (4) Screening for diabetes mellitus (DM): Code(s): Z13.1 - Encounter for screening for diabetes mellitus (5) Former smoker: Code(s): Z87.891 - Personal history of nicotine dependence Plan: Patient quit smoking over the last several years. Does occasionally use tobacco free electronic cigarettes. (6) Opiate dependence: Code(s): F11.20 - Opioid dependence, uncomplicated Qualifiers: Substance use status: uncomplicated Qualified Code(s): F11.20 - Opioid dependence, uncomplicated Plan: Patient continues to go to a Suboxone clinic. Has been sober from street opiates for quite awhile now. Orders: Orders Complete Blood Count no Diff Today I10 - Essential (primary) hypertension Prostate Specific Antigen Scr Today I10 - Essential (primary) hypertension, Z12.5 - Encounter for screening for malignant neoplasm of prostate Microalbumin, Random (w Creat) Today I10 - Essential (primary) hypertension Comprehensive Elizabeth. Panel Fast Today I10 - Essential (primary) hypertension TDaP Immunization Today I48.0 - Paroxysmal atrial fibrillation, Z23 - Encounter for immunization Medications: New lisinopril 10 mg PO DAILY 30 tabs 1RF 30 days I10 - Essential (primary) hypertension blood pressure kit-extra large test blood pressure once per day PRN 1 ea 0RF I10 - Essential (primary) hypertension Patient Instructions: Goal: Blood pressure to be below 140/90, control AFib Barriers: Adherence to physical activity and healthy eating habits. Coding Level of Care Code Est Pt Prev Care 40-64y(28114) Diagnoses Annual physical exam Z00.00 Paroxysmal atrial fibrillation I48.0 Primary hypertension I10 Hypertension type: primary hypertension Screening for diabetes mellitus (DM) Z13.1 Former smoker Z87.891 Uncomplicated opioid dependence F11.20 Substance use status: uncomplicated Additional Codes DIOGO-7 Assessment Billing - DIOGO-7 Assessment Tool: DIOGO-7 Assessment 97984 ([id number])
== END 2024-02-18 11:31 | disposition home or self-care (01) ==
PROVIDERS: PCP Physician Assistant; Visit Provider Physician Assistant
DX: Z00.00 Encounter for general adult medical examination without abnormal findings (principal); I48.0 Paroxysmal atrial fibrillation; F11.20 Opioid dependence, uncomplicated; Z23 Encounter for immunization; I10 Essential (primary) hypertension; Z13.1 Encounter for screening for diabetes mellitus; Z87.891 Personal history of nicotine dependence
CPT/HCPCS: 90471; 90715; 99396

== ENCOUNTER 2024-04-01 08:49 | Outpatient (AMB) | payer OTHER, SELFPAY ==
--- NOTE | 2024-04-01 08:52 | MHC.PC.OV ---
Vital Signs 04/01/24 08:53 Height 6 ft Weight 230 lb 2 oz BMI 31.2 BP 122/80 Blood Pressure Location Lt brachial Position Sitting Pulse 60 Pulse Source Pulse Oximeter Pulse Oximetry (%) 97 Oxygen Delivery Method Room Air Intake Visit Reasons: f/u blood pressure readings Intake Note: Patient is here to follow up on HTN. 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 Trainer: Not Required per policy Accompanied by: Self / Same As Patient Allergies No Known Allergies Allergy (Verified 04/01/24 08:59) Medication List - Last Reconciled 04/01/24 by Terence Garcia PA-C apixaban (Eliquis) 5 mg PO BID blood pressure kit-extra large test blood pressure once per day PRN buprenorphine-naloxone 8-2 mg film sublingual flecainide 150 mg PO Q12H lisinopril 5 mg PO DAILY metoprolol succinate ER (Toprol XL) 50 mg PO BID Tobacco use date assessed: 04/01/24 Dental Screening Dental Screen Date: 02/18/24 HPI f/u blood pressure readings HPI Details Patient is a 48 year male here today for a follow-up visit Patient has a past medical history significant DELMA, opiate dependence, paroxysmal AFib migraines. .. Hypertension: At last visit we discussed his elevated blood pressure readings and was started on lisinopril 5 mg. Today in office blood pressure much improved. .. Paroxysmal AFib: Continues to follow [facility]. Continues on flecainide 150 b.i.d. and metoprolol 50 mg b.i.d.. He still reports having palpitations from time to time. He has followed up with a electrophysiology cardiac surgeon in will be due for a new cardiac ablation procedure in April of 2024. 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 Tavon Rinaldi, Klaudia Casey, Dg Beatty and colleagues, with an educational coral from [employer]. Review of Systems Const Denies headache(s) Eyes Denies loss of vision ENT Denies vertigo, Denies dizziness, Denies headache(s) and Denies sore throat Card Denies chest pain, Denies leg edema and Denies lightheadedness Resp Denies cough, Denies hemoptysis and Denies wheezing GI Denies abdominal pain, Denies melena, Denies constipation, Denies diarrhea and Denies vomiting Denies dysuria, Denies urinary frequency and Denies urinary urgency Musc Denies arthralgias, Denies joint swelling, Denies numbness and Denies tingling Neuro Denies Abnormal speech present, Denies behavioral changes, Denies vertigo, Denies dizziness, Denies headache(s), Denies loss of vision, Denies memory loss, Denies numbness and Denies tingling Psych Denies anxiety, Denies behavioral changes, Denies depression, Denies memory loss and Denies panic attacks Curtis/Lymph Denies easy bleeding and Denies easy bruising Aller/Immun Denies wheezing Physical exam (Primary Care) Vital Signs: Last Vital Signs Pulse 60 04/01/24 08:53 BP 122/80 04/01/24 08:53 Pulse Ox 97 04/01/24 08:53 Oxygen Delivery Method Room Air 04/01/24 08:53 BMI result Body Mass Index 31.2 Tobacco/Smoking Status: Tobacco use Status Tobacco use date assessed 04/01/24 04/01/24 08:57 Patient Tobacco Use Status Former Tobacco user 04/01/24 08:57 Tobacco use type Cigarette,Smokeless Tobacco 04/01/24 08:57 e-Cigarette/Vaping Use Currently Using 04/01/24 08:57 Thrive Assessment: Date of Thrive Assessment Date Thrive assessed 02/14/23 04/01/24 08:57 Const General: healthy appearing, no acute distress, alert and awake Nutritional Appearance: well nourished Orientation/consciousness: oriented to person, oriented to place and oriented to time HENMT Ears: TM's normal bilaterally General nose exam: Normal nasal mucous membranes and turbinates present Eyes Conjunctivae: conjunctivae normal Sclerae: sclerae normal Pupils: Equal, round and reactive pupils present Neck Neck: Yes no lymphadenopathy and Yes no JVD Thyroid: Thyroid normal Carotids: no bruits Resp Effort & Inspection: normal respiratory effort and not tachypneic Auscultation: no crackles, no rales, no rhonchi and no wheezes Cardio Rate: regular rate Rhythm: regular rhythm Heart sounds: no murmurs and normal S1 and S2 GI Palpation (GI): Soft to palpation, nontender, no hepatomegaly and no splenomegaly Auscultation: normal bowel sounds Skin General skin exam: no rashes or lesions noted and dry skin Neuro General: oriented to person, oriented to place and oriented to time Cranial nerves: Yes Equal, round and reactive pupils present Speech: No Abnormal speech present Gait exam (Neuro): Normal gait present Motor exam (neuro): no tremor noted Extrem Right upper extremity: full ROM Left upper extremity: full ROM Right lower extremity: full ROM; no edema Left lower extremity: full ROM; no edema Psych Mental Status: mental status grossly normal Speech and movement: Normal speech and movement present Affect: normal affect Attitude: cooperative Thought process: Normal thought process present Assessment and Plan Assessment & Plan (1) HTN (hypertension): Code(s): I10 - Essential (primary) hypertension Qualifiers: Hypertension type: primary hypertension Qualified Code(s): I10 - Essential (primary) hypertension Plan: Blood pressure acceptable today in office. Will continue him on his current dose of antihypertensive medication with goal blood pressure to be below 140/90 (2) Paroxysmal atrial fibrillation: Code(s): I48.0 - Paroxysmal atrial fibrillation Plan: Patient continues to follow cardiology. Continues on flecainide 150 b.i.d. and metoprolol 50 b.i.d. with decent affect on controlling rate and rhythm. Has followed up with an early childhood director and will be getting a cardiac ablation procedure in near future. He hopes to get off of blood thinners . Orders: Referrals Cologuard Test Z12.11 - Encounter for screening for malignant neoplasm of colon Patient Instructions: Goal: Blood pressure to be below 140/90 Barriers: Adherence to physical activity and healthy eating habits Coding Level of Care Code Est Pt Level 3 (10964) Diagnoses Primary hypertension I10 Hypertension type: primary hypertension Paroxysmal atrial fibrillation I48.0
[2024-04-01 08:53] VITALS: BP 122/80; PULSE 60; O2SAT 97; BMI 31.2
== END 2024-04-01 09:14 | disposition home or self-care (01) ==
PROVIDERS: PCP Physician Assistant; Visit Provider Physician Assistant
DX: I10 Essential (primary) hypertension (principal); I48.0 Paroxysmal atrial fibrillation; F17.290 Nicotine dependence, other tobacco product, uncomplicated
CPT/HCPCS: 99213

== ENCOUNTER 2024-04-30 09:52 | Outpatient (REF) | payer OTHER, SELFPAY ==
[2024-04-30 14:35] LABS: Hematocrit 41.9 % (42.0-52.0); Hemoglobin 13.7 g/dl (14.0-18.0); Mean Corpuscular HGB Conc 32.7 g/dl (31.0-36.0); Mean Corpuscular Hemoglobin 25.4 pg (27.0-33.0); Mean Corpuscular Volume 77.7 fL (80.0-98.0); Mean Platelet Volume 11.1 fL (9.4-12.4); Platelet Count 223 X10*3/uL (160-400); Red Blood Count 5.39 X10*6/uL (4.60-5.80); Red Cell Distribution Width 13.2 % (11.0-16.0); White Blood Count 7.8 X10*3/uL (4.8-10.8)
[2024-04-30 14:55] LABS: Alanine Aminotransferase 19 U/L (0-40); Albumin Level 4.2 g/dL (3.5-5.0); Alkaline Phosphatase 91 U/L (39-117); Anion Gap 12 (12-20); Aspartate Amino Transferase 16 U/L (5-37); Bilirubin Total 0.4 mg/dL (0.0-1.0); Blood Urea Nitrogen 12 mg/dL (9-16); Calcium 9.3 mg/dL (8.4-10.2); Carbon Dioxide 29 mmol/L (22-29); Chloride 104 mmol/L (96-108); Estimated Glomerular Filt Rate > 60; Glucose Fasting 110 mg/dL (60-99); Potassium 4.6 mmol/L (3.3-5.1); Sodium 140 mmol/L (135-145); Total Protein 7.2 g/dL (6.5-8.0)
[2024-04-30 14:55] LABS: Creatinine Urine 212.64 mg/dL; Microalbum/Creatinine Ratio Ur 16.9 ug/mg cr (<30)
[2024-04-30 15:09] LABS: Prostate Specific Antigen Scr 0.38 ng/mL (<0.05-4.0)
== END 2024-04-30 09:53 | disposition home or self-care (01) ==
LOC: HO.CHCLDS 09:52
PROVIDERS: Visit Provider Physician Assistant
DX: I10 Essential (primary) hypertension (principal); Z12.5 Encounter for screening for malignant neoplasm of prostate
CPT/HCPCS: 36415; 80053; 82043; 82570; 84153; 85027

== ENCOUNTER 2024-06-15 12:28 | Outpatient (AMB) | payer OTHER, SELFPAY ==
--- NOTE | 2024-06-15 12:31 | MHC.OFFVIS ---
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 He underwent recently pulmonary vein isolation as well as CTI for atrial flutter and AFib. He has done well and has had no recurrent prolonged palpitation suggestive of atrial fibrillation. Currently still taking Eliquis, and flecainide. He was not still reduced his dose of flecainide. Currently also taking metoprolol. Continues to have symptoms of twinging sensation in his chest mostly at nighttime when he is trying to relax this bothers him quite a bit. Also describes chest pressure when he stretches himself in his precordial area. He is very worried about has not heart issues. He had a myocardial perfusion imaging which was within normal limits. Echocardiogram showed normal structure of the heart. 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 Cognitive needs: No Hearing needs: No Vision needs: No Review of Systems Const Denies chills, Denies fatigue, Denies fever(s), Denies frequent falls, Denies weakness, Denies weight gain and Denies weight loss ENT Denies dizziness Card Denies chest pain, Denies leg edema, Denies lightheadedness, Denies palpitations, Denies dyspnea, Denies dyspnea on exertion, Denies orthopnea and Denies other (loss of consciousness) Resp Denies cough, Denies dyspnea and Denies dyspnea on exertion GI Denies hematochezia and Denies change in stool character Musc Denies abnormal gait, Denies muscle weakness, Denies numbness, Denies radiating pain into limb and Denies tingling Neuro Denies abnormal gait, Denies dizziness, Denies frequent falls, Denies numbness, Denies tingling and Denies weakness Endo Denies fatigue and Denies palpitations Physical Exam Vital Signs: Last Vital Signs Pulse 60 06/15/24 12:32 BP 120/82 06/15/24 12:32 BMI result Body Mass Index 31.4 Const General: cooperative, healthy appearing, comfortable, no acute distress and anxious Orientation/consciousness: patient oriented x3 Neck Neck: Yes normal visual inspection and Yes no JVD Resp Effort & Inspection: normal respiratory effort Auscultation: clear to auscultation bilaterally, no crackles, no rales, no rhonchi and no wheezes Cardio Jugular venous distension: no JVD Rate: regular rate Rhythm: regular rhythm Heart sounds: S1 normal heart sound present, S2 normal heart sound present, no murmurs and no rubs Neuro General: patient oriented x3 Extrem General: Yes normal to inspection, No no pedal edema and No calf tenderness Psych Appearance: grossly normal Mental Status: mental status grossly normal Speech and movement: Normal speech and movement present Office Procedures EKG Details: EKG shows normal sinus rhythm with minimal QRS duration prolongation 114 milliseconds with QS pattern in lead V1 V2 [id number], Complete Assessment & Plan Assessment & Plan (1) Paroxysmal atrial fibrillation: Code(s): I48.0 - Paroxysmal atrial fibrillation Category: Medical Plan: Highly symptomatic paroxysmal atrial fibrillation, status post ablation without any obvious clinical recurrence of atrial fibrillation at this point time. Patient is very anxious about having cardiac issues. He continues to have symptoms of skipped heartbeats which are consistent with PVCs. We discussed about low likelihood of having cardiovascular event given normal structure of the heart. His chest pain syndrome appears to be nonischemic. This was discussed with him. Encouraged strongly to maintain current flecainide dose for at least additional 6 months and then gradually taper if he was no further recurrence of atrial fibrillation. Continue concomitant metoprolol therapy. CHADSVASc score of 1. Discussed about utility of oral anticoagulation therapy with low risk for thromboembolic event. For now will continue it. Avoidance of stimulants was discussed. Stress mitigation strategies were discussed. Continue risk factor modification with aggressive blood pressure control, see below. Continue CPAP therapy. (2) HTN (hypertension): Code(s): I10 - Essential (primary) hypertension Category: Medical Qualifiers: Hypertension type: primary hypertension Qualified Code(s): I10 - Essential (primary) hypertension Plan: Hypertension which is currently well optimized advised to monitor blood pressure at home maintain a log. Goal blood pressure less than 130/80. Low-salt diet was discussed. Stress mitigation strategies were discussed. Advised to participate in regular physical activity. Will follow up in the clinic in 6 months time, sooner p.r.n.. Thank you for allowing me to partake in his care Coding Level of Care Code Est Pt Level 4 (46835) Diagnoses Paroxysmal atrial fibrillation I48.0 Primary hypertension I10 Hypertension type: primary hypertension CPT Codes EKG - CPT: [id number], Complete ([id number])
[2024-06-15 12:32] VITALS: BP 120/82; PULSE 60; BMI 31.4
== END 2024-06-15 13:00 | disposition home or self-care (01) ==
PROVIDERS: PCP Physician Assistant; Visit Provider Internal Medicine Cardiovascular Disease
DX: I48.0 Paroxysmal atrial fibrillation (principal); I10 Essential (primary) hypertension
CPT/HCPCS: 93010; 99214

== ENCOUNTER → 2024-06-15 12:28 | Outpatient (BNVA) | payer OTHER, SELFPAY | PROVIDERS: PCP Physician Assistant; Visit Provider Internal Medicine Cardiovascular Disease | DX: I48.0 Paroxysmal atrial fibrillation (principal); I10 Essential (primary) hypertension; Z79.01 Long term (current) use of anticoagulants; Z87.891 Personal history of nicotine dependence | CPT/HCPCS: 93005; 99212 ==